=== PATIENT | female | born 2000 | race Caucasian/White ===

== ENCOUNTER 2020-12-09 14:15 | Outpatient (REF) | payer OTHER, SELFPAY ==
[2020-12-11 00:48] LABS: C. trachomatis RNA TMA NOT DETECTED (NOT DETECTED); N. gonorrhoeae RNA TMA NOT DETECTED (NOT DETECTED)
== END 2020-12-09 14:16 | disposition home or self-care (01) ==
LOC: HO.LNP 14:15
PROVIDERS: Visit Provider Pediatrics
DX: N92.6 Irregular menstruation, unspecified (principal)
CPT/HCPCS: 87491; 87591

== ENCOUNTER 2021-08-16 15:53 | Outpatient (REF) | payer OTHER, SELFPAY ==
[2021-08-17 00:05] LABS: Monotest Negative (Negative)
== END 2021-08-16 15:54 | disposition home or self-care (01) ==
LOC: HO.LAB 15:53
PROVIDERS: Visit Provider Internal Medicine
DX: J06.9 Acute upper respiratory infection, unspecified (principal)
CPT/HCPCS: 36415; 86308

== ENCOUNTER 2021-11-17 15:37 | Outpatient (REF) | payer OTHER, SELFPAY ==
[2021-11-17 15:58] LABS: MANUAL DIFF FLAG NO
[2021-11-17 16:39] LABS: Basophils Percent Auto 0.5 % (0-2); Eosinophils Absolute Auto 0.1 X10*3/uL (0.0-0.4); Eosinophils Percent Auto 0.7 % (0-4); Hematocrit 38.6 % (37.0-47.0); Hemoglobin 11.8 g/dl (12.0-16.0); Imm Gran Abs Auto 0.03 X10*3/uL (0.00-0.03); Imm Gran Pct Auto 0.4 % (0.0-0.4); Lymphocytes Absolute Auto 2.6 X10*3/uL (1.2-4.9); Lymphocytes Percent Auto 31.3 % (20-40); Mean Corpuscular HGB Conc 30.6 g/dl (31.0-35.0); Mean Corpuscular Hemoglobin 23.5 pg (27.0-33.0); Mean Corpuscular Volume 76.7 fL (80.0-98.0); Mean Platelet Volume 10.7 fL (9.4-12.3); Monocytes Absolute Auto 0.7 X10*3/uL (0.1-1.2); Monocytes Percent Auto 8.3 % (2-11); Neutrophils Absolute Auto 4.9 x10*3/uL (2.0-8.3); Neutrophils Percent Auto 58.8 % (45-73); Platelet Count 329 X10*3/uL (160-400); Red Blood Count 5.03 X10*6/uL (4.20-5.50); Red Cell Distribution Width 16.9 % (11.0-16.0); White Blood Count 8.4 X10*3/uL (4.8-10.8)
[2021-11-17 17:00] LABS: Alanine Aminotransferase 13 U/L (0-31); Albumin Level 4.3 g/dL (3.5-5.0); Alkaline Phosphatase 38 U/L (39-117); Anion Gap 11 (12-20); Aspartate Amino Transferase 13 U/L (5-31); Bilirubin Total 0.3 mg/dL (0.0-1.0); Blood Urea Nitrogen 10 mg/dL (9-16); C Reactive Protein 0.07 mg/dL (< or = 0.50); Calcium 9.8 mg/dL (8.4-10.2); Carbon Dioxide 23 mmol/L (22-29); Chloride 106 mmol/L (96-108); Estimated Glomerular Filt Rate > 60; Glucose Random 93 mg/dL (60-115); Iron 26 mcg/dL (30-160); Potassium 4.2 mmol/L (3.3-5.1); Sodium 136 mmol/L (135-145); Total Protein 7.5 g/dL (6.5-8.0)
[2021-11-17 17:20] LABS: Free T4 (Free Thyroxine) 0.93 ng/dL (0.71-1.85); Thyroid Stimulating Hormone 0.83 uIU/mL (0.32-4.0)
[2021-11-17 18:46] LABS: Percent Iron Saturation 4 % (15-50); Total Iron Binding Capacity 600 mcg/dL (228-428); Unsaturated Iron Binding 574 ug/dL
[2021-11-18 04:57] LABS: Lyme Abs Screen <0.90 index
[2021-11-18 05:20] LABS: Thyroid Peroxidase Antibodies <1 IU/mL (<9)
[2021-11-18 13:37] LABS: Streptolysin O Antibody <50 IU/mL (<200)
== END 2021-11-17 15:38 | disposition home or self-care (01) ==
LOC: HO.LAB 15:37
PROVIDERS: PCP Internal Medicine; Visit Provider Internal Medicine
DX: J35.01 Chronic tonsillitis (principal); E78.00 Pure hypercholesterolemia, unspecified
CPT/HCPCS: 36415; 80053; 83540; 84439; 84443; 85025; 86060; 86140; 86376; 86617; 86618; 87071

== ENCOUNTER 2022-01-12 14:59 | Outpatient (REF) | payer OTHER, SELFPAY ==
[2022-01-12 15:19] LABS: MANUAL DIFF FLAG NO
[2022-01-12 15:24] LABS: Basophils Percent Auto 0.5 % (0-2); Eosinophils Absolute Auto 0.1 X10*3/uL (0.0-0.4); Eosinophils Percent Auto 1.1 % (0-4); Hematocrit 41.1 % (37.0-47.0); Imm Gran Abs Auto 0.02 X10*3/uL (0.00-0.03); Imm Gran Pct Auto 0.3 % (0.0-0.4); Lymphocytes Absolute Auto 2.6 X10*3/uL (1.2-4.9); Lymphocytes Percent Auto 36.1 % (20-40); Mean Corpuscular HGB Conc 31.6 g/dl (31.0-35.0); Mean Corpuscular Hemoglobin 26.4 pg (27.0-33.0); Mean Corpuscular Volume 83.4 fL (80.0-98.0); Mean Platelet Volume 10.4 fL (9.4-12.3); Monocytes Absolute Auto 0.7 X10*3/uL (0.1-1.2); Monocytes Percent Auto 8.9 % (2-11); Neutrophils Absolute Auto 3.9 x10*3/uL (2.0-8.3); Neutrophils Percent Auto 53.1 % (45-73); Platelet Count 279 X10*3/uL (160-400); Red Blood Count 4.93 X10*6/uL (4.20-5.50); Red Cell Distribution Width 19.4 % (11.0-16.0); White Blood Count 7.3 X10*3/uL (4.8-10.8)
[2022-01-12 15:44] LABS: Appearance Urine CLEAR; Color Urine YELLOW; Glucose Urine UA NEG (NEG); Leukocyte Esterase Urine NEG (NEG); Nitrite Urine NEG (NEG); PH 5.5 (5.0-8.0); Urine Blood NEG (NEG); Urine Ketones NEG (NEG); Urine Protein NEG (NEG-TRACE)
[2022-01-12 16:03] LABS: Alanine Aminotransferase 13 U/L (0-31); Albumin Level 4.3 g/dL (3.5-5.0); Alkaline Phosphatase 40 U/L (39-117); Anion Gap 14 (12-20); Aspartate Amino Transferase 15 U/L (5-31); Bilirubin Total 0.3 mg/dL (0.0-1.0); Blood Urea Nitrogen 8 mg/dL (9-16); C Reactive Protein 0.05 mg/dL (< or = 0.50); Calcium 9.5 mg/dL (8.4-10.2); Carbon Dioxide 23 mmol/L (22-29); Chloride 105 mmol/L (96-108); Estimated Glomerular Filt Rate > 60; Glucose Random 91 mg/dL (60-115); Lipase 31 U/L (8-78); Potassium 4.7 mmol/L (3.3-5.1); Sodium 137 mmol/L (135-145); Total Protein 7.5 g/dL (6.5-8.0)
[2022-01-12 17:17] LABS: CT PCR NOT DETECTED (Not Detect.); NG PCR NOT DETECTED (Not Detect.)
== END 2022-01-12 15:00 | disposition home or self-care (01) ==
LOC: HO.LAB 14:59
PROVIDERS: PCP Internal Medicine; Visit Provider Internal Medicine
DX: R30.0 Dysuria (principal); R10.9 Unspecified abdominal pain; Z11.3 Encounter for screening for infections with a predominantly sexual mode of transmission; Z11.8 Encounter for screening for other infectious and parasitic diseases
CPT/HCPCS: 80053; 81003; 83690; 85025; 86140; 87086; 87491; 87591

== ENCOUNTER 2022-01-13 15:58 | Outpatient (REF) | payer OTHER, SELFPAY ==
--- NOTE | ~2022-01-13 | US_ITS ---
EXAMINATION: US PELVIS CLINICAL INFORMATION: Dysuria and pelvic pain. Rule out cyst. COMPARISON: None TECHNIQUE: Transabdominal pelvic ultrasound was performed. Patient declined transvaginal exam. FINDINGS: The uterus is anteverted and measures 6.5 x 2 x 4.3 cm in dimension. No focal uterine lesion is seen. Endometrial thickness is normal measuring 0.4 cm. The ovaries are normal-appearing. The right ovary measures 1.8 x 0.9 x 1.9 cm. The left ovary measures 2.7 x 2 x 2.3 cm. There is no fluid in the pelvis. US/US pelvic ovarian doppler IMPRESSION: Normal pelvic ultrasound.
--- NOTE | ~2022-01-13 | US_ITS ---
EXAMINATION: US PELVIS CLINICAL INFORMATION: Dysuria and pelvic pain. Rule out cyst. COMPARISON: None TECHNIQUE: Transabdominal pelvic ultrasound was performed. Patient declined transvaginal exam. FINDINGS: The uterus is anteverted and measures 6.5 x 2 x 4.3 cm in dimension. No focal uterine lesion is seen. Endometrial thickness is normal measuring 0.4 cm. The ovaries are normal-appearing. The right ovary measures 1.8 x 0.9 x 1.9 cm. The left ovary measures 2.7 x 2 x 2.3 cm. There is no fluid in the pelvis. US/US pelvic complete IMPRESSION: Normal pelvic ultrasound.
== END 2022-01-13 15:59 | disposition home or self-care (01) ==
LOC: HO.US 15:58
PROVIDERS: Visit Provider Internal Medicine
DX: R30.0 Dysuria (principal); R10.2 Pelvic and perineal pain
CPT/HCPCS: 76856; 93975

== ENCOUNTER → 2022-02-08 13:32 | Outpatient (BNVA) | payer OTHER, SELFPAY | PROVIDERS: Visit Provider Advanced Practice Midwife | DX: Z30.09 Encounter for other general counseling and advice on contraception (principal); Z79.899 Other long term (current) drug therapy | CPT/HCPCS: 99212 ==

== ENCOUNTER → 2022-02-11 11:31 | Outpatient (BNVA) | payer OTHER, SELFPAY | PROVIDERS: PCP Internal Medicine | DX: R39.82 Chronic bladder pain (principal) | CPT/HCPCS: 51798 ==

== ENCOUNTER 2022-02-25 10:01 | Outpatient (REF) | payer OTHER, SELFPAY ==
--- NOTE | ~2022-02-25 | US_ITS ---
EXAMINATION: US RETROPERITONEAL COMPLETE (RENAL) CLINICAL INFORMATION: Chronic bladder pain. COMPARISON: None TECHNIQUE: Real-time imaging of the kidneys and bladder. FINDINGS: RIGHT KIDNEY: 10.3 x 3.0 x 6.1 cm (SAG x AP x TRV). The kidney is normal in size, contour, and echogenicity. Renal cortical thickness is normal. No calculi or focal parenchymal lesions. No hydronephrosis but there is fullness of collecting system. LEFT KIDNEY: 11.2 x 5.0 x 4.7 cm (SAG x AP x TRV). The kidney is normal in size, contour, and echogenicity. Renal cortical thickness is normal. No calculi or focal parenchymal lesions. No hydronephrosis, but there is fullness of the collecting system BLADDER: Well distended and normal. Bilateral ureteral jets are demonstrated. Prevoid bladder volume is 341 mL. Postvoid bladder volume is 65.7 mL. There is small amount of debris in the bladder US/US retroperitoneal comp IMPRESSION: Enlarged residual linear amount of urine and small amount of debris in the bladder.
== END 2022-02-25 10:02 | disposition home or self-care (01) ==
LOC: HO.HMGCX 10:01
PROVIDERS: PCP Internal Medicine
DX: R39.82 Chronic bladder pain (principal)
CPT/HCPCS: 76770

== ENCOUNTER → 2022-03-24 08:33 | Outpatient (BNVA) | payer OTHER, SELFPAY | PROVIDERS: PCP Internal Medicine | DX: R30.0 Dysuria (principal) ==

== ENCOUNTER 2022-04-06 08:55 | Outpatient (REF) | payer OTHER, SELFPAY ==
[2022-04-06 09:33] LABS: COVID-19 Test Negative (Negative)
== END 2022-04-06 08:56 | disposition home or self-care (01) ==
LOC: HO.LAB 08:55
PROVIDERS: Visit Provider Internal Medicine
DX: Z20.822 Contact with and (suspected) exposure to COVID-19 (principal)
CPT/HCPCS: 87635; C9803

== ENCOUNTER 2022-05-28 10:34 | Outpatient (REF) | payer OTHER, SELFPAY ==
[2022-05-28 10:42] LABS: MANUAL DIFF FLAG NO
[2022-05-28 10:53] LABS: Basophils Percent Auto 0.5 % (0-2); Eosinophils Absolute Auto 0.1 X10*3/uL (0.0-0.4); Eosinophils Percent Auto 1.5 % (0-4); Hematocrit 41.5 % (37.0-47.0); Hemoglobin 13.8 g/dl (12.0-16.0); Imm Gran Abs Auto 0.02 X10*3/uL (0.00-0.03); Imm Gran Pct Auto 0.3 % (0.0-0.4); Lymphocytes Absolute Auto 1.8 X10*3/uL (1.2-4.9); Lymphocytes Percent Auto 23.8 % (20-40); Mean Corpuscular HGB Conc 33.3 g/dl (31.0-35.0); Mean Corpuscular Hemoglobin 30.1 pg (27.0-33.0); Mean Corpuscular Volume 90.4 fL (80.0-98.0); Mean Platelet Volume 10.5 fL (9.4-12.3); Monocytes Absolute Auto 0.7 X10*3/uL (0.1-1.2); Monocytes Percent Auto 8.9 % (2-11); Neutrophils Absolute Auto 4.9 x10*3/uL (2.0-8.3); Platelet Count 252 X10*3/uL (160-400); Red Blood Count 4.59 X10*6/uL (4.20-5.50); White Blood Count 7.6 X10*3/uL (4.8-10.8)
[2022-05-28 11:16] LABS: Alanine Aminotransferase 15 U/L (0-31); Albumin Level 4.6 g/dL (3.5-5.0); Alkaline Phosphatase 52 U/L (39-117); Anion Gap 12 (12-20); Aspartate Amino Transferase 16 U/L (5-31); Bilirubin Total 0.4 mg/dL (0.0-1.0); Blood Urea Nitrogen 10 mg/dL (9-16); Calcium 9.5 mg/dL (8.4-10.2); Carbon Dioxide 24 mmol/L (22-29); Chloride 105 mmol/L (96-108); Cholesterol 205 mg/dL; Estimated Glomerular Filt Rate > 60; Glucose Fasting 61 mg/dL (60-99); HDL Cholesterol 55 mg/dL; Iron 61 mcg/dL (30-160); LDL Cholesterol Calculated 133 mg/dl; Percent Iron Saturation 13 % (15-50); Potassium 4.4 mmol/L (3.3-5.1); Sodium 137 mmol/L (135-145); Total Iron Binding Capacity 461 mcg/dL (228-428); Total Protein 7.6 g/dL (6.5-8.0); Triglycerides 87 mg/dL; Unsaturated Iron Binding 400 ug/dL
[2022-06-01 22:22] LABS: Apolipoprotein B 105 mg/dL (<90)
== END 2022-05-28 10:35 | disposition home or self-care (01) ==
LOC: HO.LAB 10:34
PROVIDERS: PCP Internal Medicine; Visit Provider Internal Medicine
DX: E78.01 Familial hypercholesterolemia (principal); D64.9 Anemia, unspecified; E78.5 Hyperlipidemia, unspecified
CPT/HCPCS: 36415; 80053; 80061; 82172; 83540; 85025

== ENCOUNTER 2022-08-15 11:21 | Outpatient (REF) | payer OTHER, SELFPAY ==
[2022-08-15 11:34] LABS: MANUAL DIFF FLAG NO
[2022-08-15 12:43] LABS: Basophils Percent Auto 0.7 % (0-2); Eosinophils Absolute Auto 0.1 X10*3/uL (0.0-0.4); Hematocrit 40.1 % (37.0-47.0); Hemoglobin 13.1 g/dl (12.0-16.0); Imm Gran Abs Auto 0.02 X10*3/uL (0.00-0.03); Imm Gran Pct Auto 0.3 % (0.0-0.4); Lymphocytes Absolute Auto 1.6 X10*3/uL (1.2-4.9); Lymphocytes Percent Auto 27.9 % (20-40); Mean Corpuscular HGB Conc 32.7 g/dl (31.0-35.0); Mean Corpuscular Hemoglobin 28.9 pg (27.0-33.0); Mean Corpuscular Volume 88.5 fL (80.0-98.0); Mean Platelet Volume 10.6 fL (9.4-12.3); Monocytes Absolute Auto 0.6 X10*3/uL (0.1-1.2); Monocytes Percent Auto 9.5 % (2-11); Neutrophils Absolute Auto 3.5 x10*3/uL (2.0-8.3); Neutrophils Percent Auto 60.6 % (45-73); Platelet Count 246 X10*3/uL (160-400); Red Blood Count 4.53 X10*6/uL (4.20-5.50); Red Cell Distribution Width 13.4 % (11.0-16.0); White Blood Count 5.8 X10*3/uL (4.8-10.8)
[2022-08-15 13:28] LABS: Free T4 (Free Thyroxine) 0.98 ng/dL (0.71-1.85); Thyroid Stimulating Hormone 0.56 uIU/mL (0.32-4.0)
[2022-08-16 18:02] LABS: Follicle Stimulating Hormone 5.9 mIU/mL; Prolactin 8.2 ng/mL
[2022-08-20 22:48] LABS: Estradiol Free 1.83 pg/mL; Estradiol, Ultrasensitive 100 pg/mL
[2022-08-21 17:26] LABS: Testosterone, Free 1.8 pg/mL (0.1-6.4); Testosterone, Total 19 ng/dL (2-45)
== END 2022-08-15 11:22 | disposition home or self-care (01) ==
LOC: HO.LAB 11:21
PROVIDERS: PCP Internal Medicine; Visit Provider Nurse Practitioner Women's Health
DX: R23.2 Flushing (principal)
CPT/HCPCS: 36415; 82670; 82681; 83001; 84146; 84402; 84403; 84439; 84443; 85025

== ENCOUNTER 2022-09-01 16:47 | Outpatient (REF) | payer OTHER, SELFPAY ==
--- NOTE | ~2022-09-01 | US_ITS ---
EXAMINATION: US RETROPERITONEAL LIMITED (RENAL ONLY) CLINICAL INFORMATION: Dysuria. COMPARISON: Ultrasound retroperitoneal complete (renal) 02/25/2022. TECHNIQUE: Real-time imaging of the kidneys. FINDINGS: RIGHT KIDNEY: 10.1 x 3.4 x 5.2 cm (SAG x AP x TRV). The kidney is normal in size, contour, and echogenicity. Renal cortical thickness is normal. No calculi or focal parenchymal lesions. No hydronephrosis. There is mild pelvic fullness. LEFT KIDNEY: 10.4 x 5.5 x 4.0 cm (SAG x AP x TRV). The kidney is normal in size, contour, and echogenicity. Renal cortical thickness is normal. No calculi or focal parenchymal lesions. No hydronephrosis. BLADDER: Bilateral ureteral jets are demonstrated. US/US renal BI IMPRESSION: 1. Mild right renal pelvic fullness. 2. No echogenic stones or hydronephrosis seen. 3. Normal bilateral ureteral jets seen.
== END 2022-09-01 16:48 | disposition home or self-care (01) ==
LOC: HO.US 16:47
DX: R30.0 Dysuria (principal)
CPT/HCPCS: 76775

== ENCOUNTER 2022-09-13 11:33 | Outpatient (REF) | payer OTHER, SELFPAY ==
[2022-09-13 13:24] LABS: Alanine Aminotransferase 17 U/L (0-31); Albumin Level 4.9 g/dL (3.5-5.0); Alkaline Phosphatase 49 U/L (39-117); Aspartate Amino Transferase 20 U/L (5-31); Bilirubin Direct 0.2 mg/dL (0.0-0.5); Bilirubin Total 0.4 mg/dL (0.0-1.0); C Reactive Protein 0.03 mg/dL (< or = 0.50); Iron 43 mcg/dL (30-160); Percent Iron Saturation 9 % (15-50); Total Iron Binding Capacity 486 mcg/dL (228-428); Total Protein 7.8 g/dL (6.5-8.0); Unsaturated Iron Binding 443 ug/dL
[2022-09-13 13:40] LABS: Ferritin 7 ng/mL (10-122); Vitamin D 25-OH Total 30.6 ng/mL (>30)
[2022-09-13 13:54] LABS: Folate 8.2 ng/mL (> or = 4.0); Vitamin B12 258 pg/mL (200-900)
[2022-09-14 04:19] LABS: ~HepC Num1 0.16 S/CO (0.00-0.79); ~Hepatitis C Antibody Nonreactive (Nonreactive)
[2022-09-14 14:22] LABS: Immunoglobulin A 168 mg/dL (47-310)
[2022-09-16 14:52] LABS: Transglutaminase IgA <1.0 U/mL
== END 2022-09-13 11:34 | disposition home or self-care (01) ==
LOC: HO.LAB 11:33
PROVIDERS: PCP Internal Medicine; Visit Provider Internal Medicine
DX: K52.9 Noninfective gastroenteritis and colitis, unspecified (principal); R19.8 Other specified symptoms and signs involving the digestive system and abdomen
CPT/HCPCS: 36415; 80076; 82306; 82607; 82728; 82746; 82784; 83540; 84443; 86140; 86364; 86803

== ENCOUNTER 2022-09-14 11:24 | Outpatient (REF) | payer OTHER, SELFPAY | END 2022-09-14 11:25 | disposition home or self-care (01) | LOC: HO.LAB 11:24 | PROVIDERS: Visit Provider Internal Medicine | DX: Z13.89 Encounter for screening for other disorder (principal) ==

== ENCOUNTER 2022-09-15 17:02 | Outpatient (REF) | payer OTHER, SELFPAY ==
[2022-09-23 22:12] LABS: Calprotectin, Fecal <5 mcg/g
== END 2022-09-15 17:03 | disposition home or self-care (01) ==
LOC: HO.LNP 17:02
PROVIDERS: Visit Provider Internal Medicine
DX: K52.9 Noninfective gastroenteritis and colitis, unspecified (principal)
CPT/HCPCS: 83993

== ENCOUNTER → 2022-11-08 14:27 | Outpatient (BNVA) | payer OTHER, SELFPAY | PROVIDERS: PCP Internal Medicine; Visit Provider Internal Medicine | DX: R10.9 Unspecified abdominal pain (principal) ==

== ENCOUNTER 2022-11-09 10:17 | Outpatient (REF) | payer OTHER, SELFPAY ==
[2022-11-09 10:59] LABS: Appearance Urine Clear; Color Urine Yellow; Glucose Urine UA Negative (Negative); Leukocyte Esterase Urine Negative (Negative); Nitrite Urine Negative (Negative); Specific Gravity - Urine 1.025 (1.005-1.025); Urine Blood Negative (Negative); Urine Ketones Negative (Negative); Urine Protein Negative (Neg-Trace)
== END 2022-11-09 10:18 | disposition home or self-care (01) ==
LOC: HO.LAB 10:17
PROVIDERS: PCP Internal Medicine; Visit Provider Internal Medicine
DX: R30.0 Dysuria (principal)
CPT/HCPCS: 81003; 87086

== ENCOUNTER 2022-12-14 13:21 | Outpatient (REF) | payer OTHER, SELFPAY ==
[2022-12-14 14:58] LABS: Iron 196 mcg/dL (30-160); Percent Iron Saturation 53 % (15-50); Total Iron Binding Capacity 372 mcg/dL (228-428); Unsaturated Iron Binding 176 ug/dL
[2022-12-14 15:08] LABS: Ferritin 18 ng/mL (10-122)
== END 2022-12-14 13:22 | disposition home or self-care (01) ==
LOC: HO.LAB 13:21
PROVIDERS: PCP Internal Medicine; Visit Provider Internal Medicine
DX: K64.9 Unspecified hemorrhoids (principal)
CPT/HCPCS: 36415; 82728; 83540

== ENCOUNTER → 2022-12-27 08:58 | Outpatient (BNVA) | payer OTHER, SELFPAY | PROVIDERS: PCP Internal Medicine; Visit Provider Internal Medicine | DX: Z13.89 Encounter for screening for other disorder (principal) ==

== ENCOUNTER 2023-01-26 11:32 | Day surgery (SDC) | payer OTHER, SELFPAY ==
[2022-12-05 09:19] VITALS: BMI 18.6
[2023-01-23 14:30] VITALS: BMI 18.6
--- NOTE | 2023-01-25 13:30 | HO.ANESPROP2 ---
Documented by User: Virginia Moscoso NP 01/25/23 13:30 HPI - Anesthesia Eval Consult details Narrative: 22yo F for Colonoscopy PMFSH Active Problems Active Problems: All Active Problems (Updated 11/08/22 @ 15:15 by Ivelisse Barnes MD) Bright red rectal bleeding (Acute) Encounter for diagnostic colonoscopy due to change in bowel habits (Acute) Bloating (Acute) Hemorrhoids (Acute) Alternating constipation and diarrhea (Acute) Chronic diarrhea (Acute) Dysuria (Acute) Iron deficiency anemia due to chronic blood loss (Acute) Familial hypercholesterolemia (Acute) Hot flashes (Acute) ZULEIKA (generalized anxiety disorder) (Acute) Acne cosmetica (Acute) Insomnia (Acute) Chronic urinary bladder pain (Acute) control counseling (Acute) Upper respiratory tract infection (Acute) Past Medical History Medical History Acne cosmetica Chronic urinary bladder pain Dysuria Familial hypercholesterolemia ZULEIKA (generalized anxiety disorder) Hot flashes Insomnia Iron deficiency anemia due to chronic blood loss Surgical History Surgical History History of esophagogastroduodenoscopy (EGD) Social History Social History Housing: House Alcohol intake: current Alcohol intake frequency: holidays/special occasions only Alcohol type: beer and wine Patient Tobacco Use Status: Never used Tobacco e-Cigarette/Vaping Use: Never Used Are you DNR?: No Advance Directives: No Advance Directives Information Provided: Yes Recently lost weight without trying: No Patient : No service: No Current occupational status: employed and student Gender identity: Female Cognitive needs: No Hearing needs: No Vision needs: No Meds Allergies Allergy/AdvReac Type Severity Reaction Status Date / Time lactose Allergy Intermediate Gastrointestinal Verified 12/27/22 09:02 Upset Home Medications Medication Instructions Recorded Confirmed Last Taken Type tretinoin 0.025 % topical cream 1 appl topical BEDTIME 03/24/22 01/23/23 Unknown History spironolactone 25 mg tablet 50 mg PO BID 09/07/22 12/05/22 Unknown History sertraline 100 mg tablet 100 mg PO DAILY 10/12/22 12/05/22 Unknown History trazodone 100 mg tablet 100 mg PO BEDTIME 12/27/22 01/23/23 Unknown History Exam Exam Date and Time: January 25, 2023 1330 Height,Weight and Vital Signs: Height 5 ft 6 in Weight 52.163 kg Assessment and Plan Assessment Anesthesia Assessment: Chart Reviewed Documented by User: Maikel Hector MD 01/26/23 11:56 PMFSH Past Medical History Medical History Acne cosmetica Chronic urinary bladder pain Dysuria Familial hypercholesterolemia ZULEIKA (generalized anxiety disorder) Hot flashes Insomnia Iron deficiency anemia due to chronic blood loss Family History Family history of problems with anesthesia: No Surgical History Surgical History History of esophagogastroduodenoscopy (EGD) History of Problems with Anesthesia: No Social History Social History Housing: House Alcohol intake: current Alcohol intake frequency: holidays/special occasions only Alcohol type: beer and wine Patient Tobacco Use Status: Never used Tobacco e-Cigarette/Vaping Use: Never Used Are you DNR?: No Advance Directives: No Advance Directives Information Provided: Yes Recently lost weight without trying: No Patient : No service: No Current occupational status: employed and student Gender identity: Female Cognitive needs: No Hearing needs: No Vision needs: No Meds Allergies Allergy/AdvReac Type Severity Reaction Status Date / Time lactose Allergy Intermediate Gastrointestinal Verified 12/27/22 09:02 Upset Home Medications Medication Instructions Recorded Confirmed Last Taken Type tretinoin 0.025 % topical cream 1 appl topical BEDTIME 03/24/22 01/23/23 Unknown History spironolactone 25 mg tablet 50 mg PO BID 09/07/22 12/05/22 Unknown History sertraline 100 mg tablet 100 mg PO DAILY 10/12/22 12/05/22 Unknown History trazodone 100 mg tablet 100 mg PO BEDTIME 12/27/22 01/23/23 Unknown History Exam Airway Mallampati Class: II TM Dist: >3cm Neck ROM: Full Assessment and Plan Assessment Anesthesia Assessment: Anesthesia Plan Discussed Final Anesthetic Review Family History of Problems with Anesthesia: No History of Problems with Anesthesia: No NPO: Yes ASA Class: II Final Preanesthetic Review: No Changes in Pt Med Stat, Meds/Allgs Chart Reviewed, Consent Obtained/Reviewed and Anes Risks/Benef Reviewed Patient Risk: Low Procedure Risk: Low Anesthetic Plan Anesthetic Plan: MAC: Disposition: Standard PACU
--- NOTE | 2023-01-26 09:52 | MHC.SHP ---
Pre-Procedural Eval Section A Date of Service: 01/26/23 Section B Chief Complaint: abdominal pain, changes in bowels, rectal bleeding Details of Present Illness: PMH: Acne cosmetica Chronic urinary bladder pain Dysuria Familial hypercholesterolemia ZULEIKA (generalized anxiety disorder) Hot flashes Insomnia Iron deficiency anemia due to chronic blood loss Surgical History: History of esophagogastroduodenoscopy (EGD) Relevant Social History: None Present Medications: see Short Stay Collaborative assessment History of Previous Operations: No relevant previous surgery Allergies: Allergies Allergy/AdvReac Type Severity Reaction Status Date / Time lactose Allergy Intermediate Gastrointestinal Verified 12/27/22 09:02 Upset Review of Systems Review of Systems Comment: Ten point ROS negative except as above Exam Exam Comment: Gen appear: No acute distress HEENT: no icterus Chest: No overt resp distress Abd: soft, nontender, nondistended Psych: Stable affect, answering questions appropriately Neuro: A/Ox3 noted to move all extremities spontaneously Ext: no peripheral edema Plan Diagnosis/Plan: Unchanged I have reviewed the history and physical and performed a pertinent physical examination on my patient. No changes have occurred unless specified. Time Spent With Patient Time: Total time managing care of this patient today ____ minutes.
[2023-01-26 11:46] VITALS: BP 119/79; PULSE 100; RESP 18; TEMP 36.1; O2SAT 97
[2023-01-26 12:00] LABS: UPreg QC Valid YES; Urine Pregnancy NEGATIVE (NEGATIVE)
[2023-01-26] MEDS: Lactated Ringers 1,000 ML 100 ML IVCONT (12:03)
--- NOTE | 2023-01-26 12:31 | P.OP_ITS ---
Operative Note Operative Note Date of Service: 01/26/23 Narrative: Procedure: Colonoscopy Indication: Change in bowel habits, rectal bleeding Endoscopist: Ivelisse Barnes MD Anesthesia Provider: Dr Kacey Lai Anesthesia type: MAC Instrument: Olympus [id number]-H190L Consent: Indication, risks vs benefits, and alternatives were discussed with the patient who gave written informed consent to proceed. EKG, pulse, pulse oximetry and blood pressure were monitored throughout the procedure. Please see anesthesia flowsheet. Procedure: The patient was brought to the procedure room and placed in the left lateral decubitus position. IV medications were administered by the anesthesia provider in attendance. A digital rectal exam was performed which was normal. The distal cap was affixed to the tip of the scope and the colonoscope was then inserted through the anus and advanced through the colon to the cecum at 70 cm,and terminal ileum. Mucosa was carefully examined under high definition white light as the instrument was slowly withdrawn in a retrograde panoramic fashion. Retroflexion was performed in rectum. The procedure was not difficult. There were no immediate obvious complications. The quality of the prep was BBPS: 3+3+3 = excellent Withdrawal time 7 minutes. Limitations: No limitations. Findings: Mucosa: Normal to cecum and terminal ileum. Random cold forceps biopsies were taken from right and left side of the colon to r/o microscopic colitis Protruding lesions: * Large internal hemorrhoids without stigmata of recent bleeding. Impression: 1. Normal colon and terminal ileum mucosa 2. Internal hemorrhoids Recommendations: - Rectal bleeding likely secondary to hemorrhoids as noted on evaluation today. - Follow path results. - Resume asymptomatic colorectal cancer screening at 45 years.
[2023-01-26 12:36] VITALS: BP 92/47; PULSE 82; RESP 16; TEMP 36.6; O2SAT 100
[2023-01-26 12:51] VITALS: BP 100/61; PULSE 74; RESP 18; TEMP 36.4; O2SAT 100
--- NOTE | 2023-01-26 13:27 | HO.POSTANES ---
Post Anesthesia Evaluation Post Anesthesia Evaluation Vital Signs: Vital Signs Temp Pulse Resp BP Pulse Ox O2 Del Method 01/26/23 12:51 97.6 F 74 18 100/61 100 Room Air 01/26/23 12:36 97.8 F 82 16 92/47 L 100 Room Air 01/26/23 11:46 97 F 100 18 119/79 97 Room Air Anesthesia: Monitored Mental Status: Awake Pain Control: Satisfactory Nausea/Vomiting: None (Z) Hydration: Adequate Anesthesia-Related Issues: No Anes. Related Issues
== END 2023-01-26 13:37 | disposition home or self-care (01) ==
PROVIDERS: Nurse Practitioner; PCP Internal Medicine; Visit Provider Internal Medicine
PROC: 0DJD8ZZ Inspection of Lower Intestinal Tract, Via Natural or Artificial Opening Endoscopic (ICD-10-PCS; CPT 45378; principal; 2023-01-26 13:00)
DX: K62.5 Hemorrhage of anus and rectum (principal); R19.4 Change in bowel habit; R10.9 Unspecified abdominal pain; K64.8 Other hemorrhoids; E78.01 Familial hypercholesterolemia; R30.0 Dysuria; D50.0 Iron deficiency anemia secondary to blood loss (chronic); R39.82 Chronic bladder pain; L70.8 Other acne; F41.1 Generalized anxiety disorder; Z79.899 Other long term (current) drug therapy; Z91.011 Allergy to milk products
CPT/HCPCS: 45380; 81025; 88305

== ENCOUNTER 2023-01-26 21:05 | Emergency (ER) | payer OTHER, SELFPAY ==
--- NOTE | ~2023-01-26 | CT_ITS ---
EXAMINATION CT ABDOMEN AND PELVIS WITHOUT AND WITH CONTRAST CLINICAL INFORMATION: Rectal bleeding. COMPARISON: None. TECHNIQUE: Multidetector volumetric CT imaging of the abdomen and pelvis was obtained before after the administration of 80 mL Omnipaque 350 intravenous contrast without immediate adverse reactions. Postcontrast images were acquired during the late arterial and 3 min delayed phases. Coronal and sagittal reformats were reviewed. This CT examination was performed using dose optimization techniques as appropriate, variously including the following: *Automated exposure control *Adjustment of mA and/or kV according to patient size (this includes techniques or standardized protocols for targeted exams where dose is matched to indication/reason for exam; i.e. extremities or head) *Use of iterative reconstruction technique DLP: 781 mGy-cm FINDINGS: IMAGED THORAX: Clear lungs. HEPATOBILIARY: Liver normal in size, contour and morphology. There are couple subcentimeter hypodensities in the right lobe liver compatible with benign cysts. No suspicious lesions. No intra or extrahepatic biliary dilation. Normal gallbladder. PANCREAS: Normal. SPLEEN: Normal. ADRENAL GLANDS: Normal. KIDNEYS, URETERS AND BLADDER: Kidneys are normal in size, axis and morphology is symmetric uptake of contrast bilaterally. No urinary calculi, hydronephrosis or hydroureter. No perinephric abnormalities. Normal bladder. GASTROINTESTINAL TRACT: No source of active gastrointestinal bleeding is identified. No intestinal obstruction or inflammation. Normal appendix. LYMPH NODES: No lymphadenopathy. PERITONEUM/BODY WALL: Unremarkable VASCULAR STRUCTURES: Normal. OSSEOUS STRUCTURES: No acute or suspicious osseous abnormalities. CT/CT gi bleed abd pel wo/w IVcon IMPRESSION: * No source of active gastrointestinal bleeding is identified. * No acute findings within the abdomen or pelvis.
[2023-01-26 21:25] VITALS: BP 119/69; PULSE 90; RESP 16; TEMP 36.6; O2SAT 97; BMI 18.6
[2023-01-26 21:38] LABS: MANUAL DIFF FLAG NO
[2023-01-26 21:39] LABS: Basophils Absolute Auto 0.1 X10*3/uL (0.0-0.2); Basophils Percent Auto 0.6 % (0-2); Eosinophils Absolute Auto 0.1 X10*3/uL (0.0-0.4); Eosinophils Percent Auto 1.2 % (0-4); Hematocrit 39.7 % (37.0-47.0); Hemoglobin 13.2 g/dl (12.0-16.0); Imm Gran Abs Auto 0.03 X10*3/uL (0.00-0.03); Imm Gran Pct Auto 0.3 % (0.0-0.4); Lymphocytes Absolute Auto 2.8 X10*3/uL (1.2-4.9); Lymphocytes Percent Auto 30.7 % (20-40); Mean Corpuscular HGB Conc 33.2 g/dl (31.0-35.0); Mean Corpuscular Hemoglobin 30.2 pg (27.0-33.0); Mean Corpuscular Volume 90.8 fL (80.0-98.0); Mean Platelet Volume 9.9 fL (9.4-12.3); Monocytes Absolute Auto 0.8 X10*3/uL (0.1-1.2); Monocytes Percent Auto 8.9 % (2-11); Neutrophils Absolute Auto 5.3 x10*3/uL (2.0-8.3); Neutrophils Percent Auto 58.3 % (45-73); Platelet Count 245 X10*3/uL (160-400); Red Blood Count 4.37 X10*6/uL (4.20-5.50); Red Cell Distribution Width 13.3 % (11.0-16.0)
[2023-01-26 21:57] LABS: Alanine Aminotransferase 20 U/L (0-31); Albumin Level 4.3 g/dL (3.5-5.0); Alkaline Phosphatase 41 U/L (39-117); Anion Gap 14 (12-20); Aspartate Amino Transferase 19 U/L (5-31); Bilirubin Total 0.4 mg/dL (0.0-1.0); Blood Urea Nitrogen 9 mg/dL (9-16); Carbon Dioxide 27 mmol/L (22-29); Chloride 106 mmol/L (96-108); Creatinine Clr Calc Pharmacy 96.1; Estimated Glomerular Filt Rate > 60; Glucose Random 87 mg/dL (60-115); Potassium 4.2 mmol/L (3.3-5.1); Sodium 143 mmol/L (135-145); Total Protein 6.7 g/dL (6.5-8.0)
[2023-01-26 23:07] VITALS: BP 122/79; PULSE 73; RESP 16; TEMP 37; O2SAT 100
--- NOTE | 2023-01-26 23:12 | PC.NURSE ---
Pt presents to the ED for evaluation after having bright red blood after having a colonoscopy earlier today. Relates 2 episodes since 6pm. Denies any dizziness or lightheadedness. Relates some nausea. Ambulatory, alert, oriented x4 on arrival.
--- NOTE | 2023-01-26 23:55 | ED_ITS ---
HPI - GI Bleed General Chief complaint: GI Bleed Stated complaint: colonoscopy today states rectal bleeding Time Seen by Provider: 01/26/23 23:41 Source: patient Mode of arrival: ambulatory Limitations: no limitations History of Present Illness HPI Narrative: Patient comes to the emergency room complaining of painless rectal bleeding. Patient states that earlier today she had a colonoscopy done here at [facility]. Patient has had rectal bleeding in the past. Patient states that after her procedure she went home, was feeling well, then had abdominal cramping and then had rectal bleeding. Patient denies chest pain or shortness of breath, no lightheadedness. Related Data Home Medications Medication Instructions Recorded Confirmed tretinoin 0.025 % topical cream 1 appl topical BEDTIME 03/24/22 01/23/23 spironolactone 25 mg tablet 50 mg PO BID 09/07/22 12/05/22 sertraline 100 mg tablet 100 mg PO DAILY 10/12/22 12/05/22 trazodone 100 mg tablet 100 mg PO BEDTIME 12/27/22 01/23/23 Previous Rx's Medication Instructions Recorded sennosides 8.6 mg tablet (senna) 8.6 mg PO BEDTIME PRN constipation 09/07/22 30 days #30 tabs lactase 3,000 unit tablet (Lactaid) 3,000 unit PO QID PRN lactose 10/12/22 intolerance #60 tabs Allergies Allergy/AdvReac Type Severity Reaction Status Date / Time lactose Allergy Intermediate Gastrointestinal Verified 12/27/22 09:02 Upset Review of Systems Review of Systems: Constitutional : No Weight loss, No Fever, No Chills, No Night Sweats, No Fatigue, No Malaise ENT/Mouth : No Hearing loss, No Ear Pain, No Nasal Congestion, No Sinus Pain, No Hoarseness, No sore throat, No Rhinorrhea, No Swallowing Difficulty Eyes: No Eye Pain, No Swelling, No Redness, No Foreign Body, No Discharge, No Vision Changes Cardiovascular : No Chest Pain, No SOB, No Dyspnea on Exertion, No Orthopnea, No Edema, No Palpitations Respiratory : No Cough, No Sputum, No Wheezing, No Smoke Exposure, No Dyspnea Gastrointestinal : No Nausea, No Vomiting, No Diarrhea, No Constipation, No abdominal Pain, complaining of rectal bleeding Genitourinary : no irregular bleeding, No Dysuria, No Urinary Frequency, No Hematuria, No Urinary Incontinence, No Urgency, No Flank Pain, No Urinary Flow Changes, No Hesitancy Musculoskeletal : No joint pain, No Myalgias, No Joint Swelling Skin : No Skin Lesions, No rash Neuro : No Weakness, No Numbness, No Paresthesias, No Loss of Consciousness, No Dizziness, No Headache Psych : No Anxiety/Panic, No Depression, No SI/HI/AH/VH, No Social Issues, Heme/Lymph: No Bruising, No Bleeding,No Lymphadenopathy Endocrine : No Polyuria, No Polydipsia, No Temperature Intolerance [facility] Past Medical History Medical History Acne cosmetica Chronic urinary bladder pain Dysuria Familial hypercholesterolemia ZULEIKA (generalized anxiety disorder) Hot flashes Insomnia Iron deficiency anemia due to chronic blood loss Surgical History History of esophagogastroduodenoscopy (EGD) Social History Social History Housing: House Alcohol intake: current Alcohol intake frequency: holidays/special occasions only Alcohol type: beer and wine Patient Tobacco Use Status: Never used Tobacco e-Cigarette/Vaping Use: Never Used Advance Directives: No Advance Directives Information Provided: No Patient : No service: No Current occupational status: employed and student Gender identity: Female Cognitive needs: No Hearing needs: No Vision needs: No Physical Exam Vital Signs: Vital Signs: Last Vital Signs Temp 98.6 F 01/26/23 23:57 Pulse 64 01/26/23 23:57 Resp 14 01/26/23 23:57 BP 103/70 01/26/23 23:57 Pulse Ox 99 01/26/23 23:57 O2 Del Method 01/26/23 23:07 BMI result Body Mass Index 18.6 Const: Other: Appearance: Alert. Oriented X3. No acute distress. Eyes: Pupils equal, round and reactive to light. ENT: Pharynx normal. Neck: Normal inspection. Neck supple. No lymph nodes noted. No crepitus CVS: Normal heart rate and rhythm. Pulses normal. Normal S1 and S2 Respiratory: No respiratory distress. Breath sounds normal. No Wheezing. No rales Abdomen: Soft and nontender. No rigidity. No distention. Skin: Skin warm and dry. Normal skin color. Normal skin turgor. Extremities: No lower extremity edema. No Lacerations. No Rash Neuro: Oriented X 3. No motor deficit. No sensory deficit. Moving all extremities. No slurred speech. CN 2 through 12 grossly intact Psych: calm, cooperative, normal affect Course Course Course Narrative: -patient's initial labs show a normal hemoglobin and hematocrit. Patient's H&H will be drawn 2 hours after the 1st set of labs -CT for GI bleed pending Medications Administered Discontinued Medications Generic Name Dose Route Start Last Admin Trade Name Sherri PRN Reason Stop Dose Admin Iohexol 80 ml 01/27/23 01:48 01/27/23 01:49 Iohexol 350 Mg/Ml 100 Ml Infus..Btl IV 01/27/23 01:49 80 ml ONCE ONE Administration Medical Decision Making Medical Decision Making [facility] Narrative: -I reviewed Dr. Barnes's colonoscopy note from today: Finding showed rectal bleeding likely secondary to hemorrhoids as noted on the evaluation -patient's H&H is stable, no significant drop in hemoglobin. Vital stable -CT scan do not detect any active GI bleed -since patient has been here, patient has not had any significant bleeding, maybe just a few drops. -on digital rectal exam, the specimen came out clean, small amount of stool with no blood. Guaiac has been sent but there may be microscopic blood there was no gross red blood -patient feeling well, ready for discharge -discussed with the patient that she may have internal hemorrhoids. -patient offered preparation H prescription but states she already has at home. Differential Diagnosis Differential Diagnoses: The differential diagnosis associated with the presentation includes (Internal hemorrhoids, laceration from colonoscopy, colitis) Lab Data [facility] Lab Attestation statement: I reviewed the patient's lab results. 01/26/23 21:34 01/26/23 21:34 Labs: Lab Results 01/26/23 01/26/23 01/27/23 Range/Units 21:34 21:34 00:35 WBC 9.0 (4.8-10.8) X10*3/uL RBC 4.37 (4.20-5.50) X10*6/uL Hgb 13.2 12.5 (12.0-16.0) g/dl Hct 39.7 36.5 L (37.0-47.0) % MCV 90.8 (80.0-98.0) fL MCH 30.2 (27.0-33.0) pg MCHC 33.2 (31.0-35.0) g/dl RDW 13.3 (11.0-16.0) % Plt Count 245 (160-400) X10*3/uL MPV 9.9 (9.4-12.3) fL Immature Gran % (Auto) 0.3 (0.0-0.4) % Neut % (Auto) 58.3 (45-73) % Lymph % (Auto) 30.7 (20-40) % [place] % (Auto) 8.9 (2-11) % Eos % (Auto) 1.2 (0-4) % Baso % (Auto) 0.6 (0-2) % Lymph # (Auto) 2.8 (1.2-4.9) X10*3/uL [place] # (Auto) 0.8 (0.1-1.2) X10*3/uL Eos # (Auto) 0.1 (0.0-0.4) X10*3/uL Baso # (Auto) 0.1 (0.0-0.2) X10*3/uL Abs Immat Gran (auto) 0.03 (0.00-0.03) X10*3/uL Absolute Neuts (auto) 5.3 (2.0-8.3) x10*3/uL Absolute Nucleated RBC 0.000 (0.0-0.012) X10*3/uL Nucleated RBC % (auto) 0.0 (0.0-0.2) /100WBC Sodium 143 (135-145) mmol/L Potassium 4.2 (3.3-5.1) mmol/L Chloride 106 (96-108) mmol/L Carbon Dioxide 27 (22-29) mmol/L Anion Gap 14 (12-20) BUN 9 (9-16) mg/dL Creatinine 0.75 (0.5-1.4) mg/dL Estim Creat Clear Calc 96.1 Estimated GFR > 60 Random Glucose 87 (60-115) mg/dL Calcium 9.0 (8.4-10.2) mg/dL Total Bilirubin 0.4 (0.0-1.0) mg/dL AST 19 (5-31) U/L ALT 20 (0-31) U/L Alkaline Phosphatase 41 (39-117) U/L Total Protein 6.7 (6.5-8.0) g/dL Albumin 4.3 (3.5-5.0) g/dL Beta HCG, Quant < 2 mIU/mL Discharge Plan Discharge Clinical Impression: Bleeding internal hemorrhoids Patient Disposition: Home, Self-Care Instructions: Hemorrhoids (ED) Additional Instructions: Please follow-up with your primary care physician tomorrow. If you have any worsening or new symptoms, please return to the emergency room or call 911 Prescriptions: No Action spironolactone 25 mg tablet 50 mg PO BID tretinoin 0.025 % cream 1 appl topical BEDTIME sennosides [senna] 8.6 mg tablet 8.6 mg PO BEDTIME PRN (Reason: constipation) 30 Days Qty: 30 2RF sertraline 100 mg tablet 100 mg PO DAILY lactase [Lactaid] 3,000 unit tablet 3,000 unit PO QID PRN (Reason: lactose intolerance) Qty: 60 1RF Rx Instructions: administer with meals and/or snacks trazodone 100 mg tablet 100 mg PO BEDTIME
[2023-01-26 23:57] VITALS: BP 103/70; PULSE 64; RESP 14; TEMP 37; O2SAT 99
[2023-01-27 00:29] LABS: HCG Quantitative < 2 mIU/mL
[2023-01-27 00:42] LABS: Hematocrit 36.5 % (37.0-47.0); Hemoglobin 12.5 g/dl (12.0-16.0)
[2023-01-27] MEDS: iohexoL 350 MG/ML 100 ML INFUS..BTL 80 ML IV (01:49)
[2023-01-27 03:05] LABS: OBS Int Ctl Valid YES; OBS1 POSITIVE (NEGATIVE)
[2023-01-27 03:10] VITALS: BP 107/65; PULSE 68; RESP 16; TEMP 36.6; O2SAT 100
== END 2023-01-27 03:14 | disposition home or self-care (01) ==
PROVIDERS: Emergency Provider Emergency Medicine; PCP Internal Medicine
DX: K64.5 Perianal venous thrombosis (principal); R10.13 Epigastric pain; Z79.899 Other long term (current) drug therapy
CPT/HCPCS: 36415; 74178; 80053; 82272; 84702; 85014; 85018; 85025; 99284; Q9967

== ENCOUNTER → 2023-02-06 13:23 | Outpatient (BNVA) | payer OTHER, SELFPAY | PROVIDERS: PCP Internal Medicine; Visit Provider Internal Medicine | DX: Z13.89 Encounter for screening for other disorder (principal) ==

== ENCOUNTER 2023-04-16 01:17 | Emergency (ER) | payer OTHER, SELFPAY ==
[2023-04-16 01:22] VITALS: BP 118/76; PULSE 89; RESP 16; TEMP 36.5; O2SAT 100; BMI 19.4
[2023-04-16 02:00] VITALS: BP 119/77; PULSE 72; RESP 16; TEMP 36.4; O2SAT 98
[2023-04-16 02:26] LABS: Appearance Urine Cloudy; Color Urine Yellow; Glucose Urine UA Negative (Negative); Leukocyte Esterase Urine Large (3+) (Negative); Nitrite Urine Positive (Negative); UMIC TRIGGER UACC YES; Urine Blood Large (3+) (Negative); Urine Ketones 15 mg/dL (Negative); Urine Protein 30 (1+) mg/dL (Neg-Trace)
[2023-04-16 02:27] LABS: UPreg QC Valid YES; Urine Pregnancy NEGATIVE (NEGATIVE)
--- NOTE | 2023-04-16 02:29 | ED_ITS ---
HPI - Female Genitourinary General Chief complaint: Urogenital-Female Stated complaint: ?Urinary Tract Infection Time Seen by Provider: 04/16/23 02:04 Source: patient Mode of arrival: ambulatory History of Present Illness HPI Narrative: 23-year-old female who reports a new sexual partner and states that yesterday she began having some urinary discomfort and then today it became more significant with pain and burning as well as frequency and patient feels that she also saw some blood in the urine. Patient denies any concerns for STIs at this time. Related Data Home Medications Medication Instructions Recorded Confirmed spironolactone 25 mg tablet 50 mg PO BID 09/07/22 12/05/22 trazodone 100 mg tablet 100 mg PO BEDTIME 12/27/22 01/23/23 desvenlafaxine succinate 50 mg 50 mg PO DAILY 02/06/23 tablet,extended release 24 hr Previous Rx's Medication Instructions Recorded sennosides 8.6 mg tablet (senna) 8.6 mg PO BEDTIME PRN constipation 09/07/22 30 days #30 tabs lactase 3,000 unit tablet (Lactaid) 3,000 unit PO QID PRN lactose 10/12/22 intolerance #60 tabs wheat dextrin 3 gram/3.5 gram oral 2 packet (2 x 3 gram/3.5 gram) PO 02/06/23 powder packet (Benefiber Clear BID 30 days #120 ea Sugar Free(dextrin)) nitrofurantoin 100 mg PO Q12H 5 days #10 caps 04/16/23 monohydrate/macrocrystals 100 mg capsule (Macrobid) phenazopyridine 200 mg tablet 200 mg PO TID PRN pain 6 doses #6 04/16/23 (Pyridium) tabs Allergies Allergy/AdvReac Type Severity Reaction Status Date / Time lactose Allergy Intermediate Gastrointestinal Verified 12/27/22 09:02 Upset Review of Systems Review of Systems: Pertinent positives and negatives as stated in HPI [facility] Past Medical History Source: nursing notes reviewed Medical History Acne cosmetica Chronic urinary bladder pain Dysuria Familial hypercholesterolemia ZULEIKA (generalized anxiety disorder) Hot flashes Insomnia Iron deficiency anemia due to chronic blood loss Surgical History History of esophagogastroduodenoscopy (EGD) Hx of colonoscopy Social History Social History Housing: House Alcohol intake: current Alcohol intake frequency: holidays/special occasions only Alcohol type: beer and wine Patient Tobacco Use Status: Never used Tobacco e-Cigarette/Vaping Use: Never Used Advance Directives: No Advance Directives Information Provided: Yes service: No Current occupational status: employed and student Gender identity: Female Cognitive needs: No Hearing needs: No Vision needs: No Physical Exam Vital Signs: Vital Signs: Last Vital Signs Temp 97.7 F 04/16/23 01:22 Pulse 89 04/16/23 01:22 Resp 16 04/16/23 01:22 BP 118/76 04/16/23 01:22 Pulse Ox 100 04/16/23 01:22 O2 Del Method Room Air 04/16/23 01:22 BMI result Body Mass Index 19.4 VITAL SIGNS: Reviewed. GENERAL: Well developed, well nourished, in no acute distress. HEAD: Normocephalic/atraumatic EYES: PERRLA, EOMI EARS: Ext canals without abnormality LUNGS: Normal breath sounds. No adventitious sounds or accessory muscle use. SpO2<100> CARDIOVASCULAR: Regular rate and rhythm without noted murmurs ABDOMEN: Soft, non-tender, non-distended with bowel sounds. MUSCULOSKELETAL: No tenderness, deformities, or effusions noted on gross inspection. EXTREMITIES: No cyanosis, clubbing or edema. SKIN: Inspection of the skin reveals no rashes NEUROLOGIC: Alert and oriented x 4. Strength and sensation to light touch were grossly intact x 4. Medical Decision Making Medical Decision Making MDM Narrative: 23-year-old female with history and clinical presentation most consistent with urinary tract infection, after review of results my interpretation remains the same. She received initial dose of antibiotics as well as peridium and was discharged with remaining course. Differential Diagnosis Please see the discussion above Lab Data Please see the discussion above Labs: Lab Results 04/16/23 04/16/23 Range/Units 02:17 02:17 Urine Color Yellow Urine Appearance Cloudy Urine pH 7.0 (5.0-9.0) Ur Specific [place] 1.010 (1.005-1.025) Urine Protein 30 (1+) H (Neg-Trace) mg/dL Urine Glucose (UA) Negative (Negative) mg/dL Urine Ketones 15 (Negative) mg/dL Urine Blood Large (3+) H (Negative) Urine Nitrite Positive H (Negative) Ur Leukocyte Esterase Large (3+) H (Negative) Urine Test NEGATIVE (NEGATIVE) Discharge Plan Discharge Clinical Impression: UTI (urinary tract infection) Patient Disposition: Home, Self-Care Instructions: Urinary Tract Infection in Women (ED) Additional Instructions: 1. Complete the entire course of antibiotics. 2. You are receiving additional medications that will change the color of your urine in appear to be blood, but it is not blood. 3. Return to the ER for any worsening symptoms. Prescriptions: New nitrofurantoin monohyd/m-cryst [Macrobid] 100 mg capsule 100 mg PO Q12H 5 Days Qty: 10 0RF Rx Instructions: must administer with a meal/food phenazopyridine [Pyridium] 200 mg tablet 200 mg PO TID PRN (Reason: pain) Qty: 6 0RF No Action spironolactone 25 mg tablet 50 mg PO BID sennosides [senna] 8.6 mg tablet 8.6 mg PO BEDTIME PRN (Reason: constipation) 30 Days Qty: 30 2RF lactase [Lactaid] 3,000 unit tablet 3,000 unit PO QID PRN (Reason: lactose intolerance) Qty: 60 1RF Rx Instructions: administer with meals and/or snacks trazodone 100 mg tablet 100 mg PO BEDTIME desvenlafaxine succinate 50 mg tablet extended release 24 hr 50 mg PO DAILY Benefiber Clear SF (dextrin) 3 gram/3.5 gram powder in packet 2 packet PO BID 30 Days Qty: 120 1RF Rx Instructions: mix into at least 4 oz water or juice before administering Referrals: Nick Johnson MD [Primary Care Provider] -
[2023-04-16 02:32] LABS: Bacteria Urine 3+ (None Seen); Hyaline Casts Urine 0-2 /LPF (0-2); RBC Urine >20 /HPF (0-2); Squamous Epithelial Cell Urine 0-2 /HPF (0-2); UACC Culture Trigger YES; WBC Urine >50 /HPF (0-5)
[2023-04-16] MEDS: Nitrofurantoin Monohyd/M-Cryst 100 MG CAPSULE PO (02:50)
[2023-04-16] MEDS: Phenazopyridine HCL 200 MG TABLET PO (02:50)
== END 2023-04-16 02:53 | disposition home or self-care (01) ==
PROVIDERS: Emergency Provider Student in an Organized Health Care Education/Training Program; PCP Internal Medicine
DX: N39.0 Urinary tract infection, site not specified (principal); R30.0 Dysuria; Z79.899 Other long term (current) drug therapy
CPT/HCPCS: 81001; 81025; 87086; 87088; 87186; 99283

== ENCOUNTER 2023-05-08 15:27 | Outpatient (REF) | payer OTHER, SELFPAY ==
[2023-05-08 17:12] LABS: Rheumatoid Factor < 13.0 IU/mL (<15.0)
[2023-05-08 17:19] LABS: C Reactive Protein < 0.04 mg/dL (< or = 0.50)
[2023-05-08 17:34] LABS: Free T4 (Free Thyroxine) 0.89 ng/dL (0.71-1.85); Thyroid Stimulating Hormone 0.94 uIU/mL (0.32-4.0)
[2023-05-08 17:47] LABS: Erythrocyte Sedimentation Rate 2 MM/HR (0-20)
[2023-05-09 07:32] LABS: Thyroid Peroxidase Antibodies <1 IU/mL (<9)
[2023-05-09 13:34] LABS: Anti Nuclear Antibody Screen NEGATIVE (NEGATIVE)
== END 2023-05-08 15:28 | disposition home or self-care (01) ==
LOC: HO.LAB 15:27
PROVIDERS: PCP Internal Medicine; Visit Provider Internal Medicine
DX: H04.129 Dry eye syndrome of unspecified lacrimal gland (principal); K64.9 Unspecified hemorrhoids; F41.1 Generalized anxiety disorder
CPT/HCPCS: 36415; 46600; 84439; 84443; 85652; 86038; 86140; 86376; 86431

== ENCOUNTER 2023-07-17 16:12 | Outpatient (REF) | payer OTHER, SELFPAY ==
[2023-07-20 13:54] LABS: Antibody to SS-A Antigen <1.0 NEG AI (<1.0 NEG); Antibody to SS-B Antigen <1.0 NEG AI (<1.0 NEG)
== END 2023-07-17 16:13 | disposition home or self-care (01) ==
LOC: HO.LAB 16:12
PROVIDERS: PCP Internal Medicine; Visit Provider Internal Medicine
DX: H04.129 Dry eye syndrome of unspecified lacrimal gland (principal)
CPT/HCPCS: 36415; 86235

== ENCOUNTER 2023-11-07 17:01 | Outpatient (REF) | payer OTHER, SELFPAY ==
[2023-11-07 17:43] LABS: Influenza A PCR NEGATIVE (Negative); Influenza B PCR NEGATIVE (Negative); Resp Syncy Virus RNA Qual PCR NEGATIVE (Negative); SARS COV2 PCR INHOUSE NEGATIVE (Negative)
== END 2023-11-07 17:02 | disposition home or self-care (01) ==
LOC: HO.LNP 17:01
PROVIDERS: Visit Provider Internal Medicine
DX: Z11.52 Encounter for screening for COVID-19 (principal); Z20.822 Contact with and (suspected) exposure to COVID-19; R05.9 Cough, unspecified; R06.02 Shortness of breath; R51.9 Headache, unspecified
CPT/HCPCS: 0241U

== ENCOUNTER 2023-11-08 11:00 | Outpatient (REF) | payer OTHER, SELFPAY ==
[2023-11-08 11:16] LABS: MANUAL DIFF FLAG NO
[2023-11-08 13:05] LABS: Basophils Absolute Auto 0.1 X10*3/uL (0.0-0.2); Basophils Percent Auto 0.9 % (0-2); Eosinophils Absolute Auto 0.1 X10*3/uL (0.0-0.4); Eosinophils Percent Auto 2.4 % (0-4); Hematocrit 40.2 % (37.0-47.0); Imm Gran Abs Auto 0.01 X10*3/uL (0.00-0.03); Imm Gran Pct Auto 0.2 % (0.0-0.4); Lymphocytes Percent Auto 36.1 % (20-40); Mean Corpuscular HGB Conc 32.3 g/dl (31.0-35.0); Mean Corpuscular Hemoglobin 29.1 pg (27.0-33.0); Mean Corpuscular Volume 89.9 fL (80.0-98.0); Mean Platelet Volume 11.3 fL (9.4-12.3); Monocytes Absolute Auto 0.6 X10*3/uL (0.1-1.2); Neutrophils Absolute Auto 2.8 x10*3/uL (2.0-8.3); Neutrophils Percent Auto 50.4 % (45-73); Platelet Count 258 X10*3/uL (160-400); Red Blood Count 4.47 X10*6/uL (4.20-5.50); Red Cell Distribution Width 13.3 % (11.0-16.0); White Blood Count 5.5 X10*3/uL (4.8-10.8)
[2023-11-08 14:00] LABS: Alanine Aminotransferase 15 U/L (0-31); Albumin Level 4.5 g/dL (3.5-5.0); Alkaline Phosphatase 53 U/L (39-117); Anion Gap 11 (12-20); Aspartate Amino Transferase 19 U/L (5-31); Bilirubin Total 0.3 mg/dL (0.0-1.0); Blood Urea Nitrogen 10 mg/dL (9-16); C Reactive Protein < 0.04 mg/dL (< or = 0.50); Calcium 9.4 mg/dL (8.4-10.2); Carbon Dioxide 26 mmol/L (22-29); Chloride 105 mmol/L (96-108); Estimated Glomerular Filt Rate > 60; Glucose Random 80 mg/dL (60-115); Potassium 4.1 mmol/L (3.3-5.1); Sodium 138 mmol/L (135-145); Total Protein 7.5 g/dL (6.5-8.0)
[2023-11-08 14:07] LABS: Vitamin B12 411 pg/mL (200-900)
[2023-11-08 14:17] LABS: Thyroid Stimulating Hormone 0.62 uIU/mL (0.32-4.0)
== END 2023-11-08 11:01 | disposition home or self-care (01) ==
LOC: HO.LAB 11:00
PROVIDERS: PCP Internal Medicine; Visit Provider Internal Medicine
DX: R53.83 Other fatigue (principal); I95.9 Hypotension, unspecified
CPT/HCPCS: 36415; 80053; 82550; 82607; 84443; 85025; 86140

== ENCOUNTER 2023-12-12 09:57 | Outpatient (REF) | payer OTHER, SELFPAY ==
[2023-12-15 06:49] LABS: C. trachomatis RNA TMA NOT DETECTED (NOT DETECTED); N. gonorrhoeae RNA TMA NOT DETECTED (NOT DETECTED)
== END 2023-12-12 09:58 | disposition home or self-care (01) ==
LOC: HO.LNP 09:57
PROVIDERS: Visit Provider Nurse Practitioner Women's Health
DX: Z01.419 Encounter for gynecological examination (general) (routine) without abnormal findings (principal)
CPT/HCPCS: 87491; 87591; 88142

== ENCOUNTER 2024-05-17 15:12 | Outpatient (REF) | payer OTHER, SELFPAY ==
[2024-05-17 15:32] LABS: MANUAL DIFF FLAG NO
[2024-05-17 15:43] LABS: Basophils Percent Auto 0.5 % (0-2); Eosinophils Absolute Auto 0.1 X10*3/uL (0.0-0.4); Eosinophils Percent Auto 1.1 % (0-4); Hematocrit 40.7 % (37.0-47.0); Hemoglobin 13.4 g/dl (12.0-16.0); Imm Gran Abs Auto 0.02 X10*3/uL (0.00-0.03); Imm Gran Pct Auto 0.2 % (0.0-0.4); Lymphocytes Absolute Auto 2.1 X10*3/uL (1.2-4.9); Lymphocytes Percent Auto 26.4 % (20-40); Mean Corpuscular HGB Conc 32.9 g/dl (31.0-35.0); Mean Corpuscular Hemoglobin 27.9 pg (27.0-33.0); Mean Corpuscular Volume 84.6 fL (80.0-98.0); Mean Platelet Volume 11.1 fL (9.4-12.3); Monocytes Absolute Auto 0.7 X10*3/uL (0.1-1.2); Monocytes Percent Auto 8.8 % (2-11); Neutrophils Absolute Auto 5.1 x10*3/uL (2.0-8.3); Platelet Count 257 X10*3/uL (160-400); Red Blood Count 4.81 X10*6/uL (4.20-5.50); Red Cell Distribution Width 13.6 % (11.0-16.0)
[2024-05-17 16:29] LABS: Erythrocyte Sedimentation Rate 6 MM/HR (0-20)
[2024-05-17 16:42] LABS: Alanine Aminotransferase 13 U/L (0-31); Albumin Level 4.7 g/dL (3.5-5.0); Alkaline Phosphatase 50 U/L (39-117); Anion Gap 11 (12-20); Aspartate Amino Transferase 16 U/L (5-31); Bilirubin Total 0.3 mg/dL (0.0-1.0); Blood Urea Nitrogen 11 mg/dL (9-16); C Reactive Protein < 0.10 mg/dL (< or = 0.50); Calcium 9.7 mg/dL (8.4-10.2); Carbon Dioxide 26 mmol/L (22-29); Chloride 105 mmol/L (96-108); Estimated Glomerular Filt Rate > 60; Glucose Random 90 mg/dL (60-115); Magnesium 2.1 mg/dL (1.6-2.6); Potassium 4.2 mmol/L (3.3-5.1); Sodium 138 mmol/L (135-145)
== END 2024-05-17 15:13 | disposition home or self-care (01) ==
LOC: HO.LAB 15:12
PROVIDERS: PCP Internal Medicine; Visit Provider Internal Medicine
DX: R10.9 Unspecified abdominal pain (principal); K58.0 Irritable bowel syndrome with diarrhea
CPT/HCPCS: 36415; 80053; 82550; 83735; 85025; 85652; 86140

== ENCOUNTER 2024-07-23 14:28 | Outpatient (REF) | payer OTHER, SELFPAY | END 2024-07-23 14:29 | disposition home or self-care (01) | LOC: HO.LNP 14:28 | PROVIDERS: Visit Provider Obstetrics & Gynecology | DX: R30.0 Dysuria (principal) | CPT/HCPCS: 87086 ==

== ENCOUNTER 2024-10-01 08:51 | Outpatient (REF) | payer OTHER, SELFPAY ==
[2024-10-01 10:56] LABS: UPreg QC Valid YES; Urine Pregnancy NEGATIVE (NEGATIVE)
[2024-10-01 11:21] LABS: Alanine Aminotransferase 16 U/L (0-31); Albumin Level 4.4 g/dL (3.5-5.0); Alkaline Phosphatase 56 U/L (39-117); Aspartate Amino Transferase 20 U/L (5-31); Bilirubin Direct 0.1 mg/dL (0.0-0.5); Bilirubin Total 0.3 mg/dL (0.0-1.0); Cholesterol 220 mg/dL (<200); HDL Cholesterol 50 mg/dL (>40); LDL Cholesterol Calculated 155 mg/dL (<100); Total Protein 7.5 g/dL (6.5-8.0); Triglycerides 75 mg/dL (<150)
== END 2024-10-01 08:52 | disposition home or self-care (01) ==
LOC: HO.10HDL 08:51
PROVIDERS: Visit Provider Dermatology
DX: Z13.6 Encounter for screening for cardiovascular disorders (principal); L70.0 Acne vulgaris
CPT/HCPCS: 36415; 80061; 80076; 81025

== ENCOUNTER 2024-10-24 09:22 | Outpatient (AMB) | payer OTHER, SELFPAY ==
--- NOTE | 2024-10-24 09:24 | MHC.OFFVIS ---
Vital Signs 10/24/24 09:31 Height 5 ft 6 in Weight 125 lb BMI 20.2 Intake Visit Reasons: follow up Hemorrhoids Intake Note: This patient presents for follow up Hemorrhoids. Pt c/o; reports occasional rectal bleeding, reports pain, reports painful bowel movements for about over one month, occasional deep ache, stinging itch, walking uncomfortable and sitting. [employer] Workers Required: No Swimming Pool Maintenance Supervisor: Swimming Pool Maintenance Supervisor offered & declined Accompanied by: Self / Same As Patient Allergies lactose Allergy (Intermediate, Verified 10/24/24 09:24) Gastrointestinal Upset Medication List - Last Reconciled 10/24/24 by Nick Brown MD desvenlafaxine succinate ER 50 mg PO DAILY escitalopram oxalate 10 mg PO DAILY lactase (Lactaid) 3,000 units PO QID PRN nitrofurantoin monohyd/m-cryst 100 mg (Macrobid) 100 mg PO Q12H 5 days nitroglycerin 0.4%(w/w) (Rectiv) 1 inch UT BID phenazopyridine (Pyridium) 200 mg PO TID PRN 6 doses sennosides (senna) 8.6 mg PO BEDTIME PRN 30 days spironolactone 50 mg PO BID trazodone 100 mg PO BEDTIME wheat dextrin (Benefiber Clear Sugar Free(dextrin)) 2 packets (2 x 3 gram/3.5 gram) PO BID 30 days HPI HPI follow up Hemorrhoids: Details: [age] year old female here for anal pain. I had seen her last year for what we felt was bleeding hemorrhoids. Her main problem then was she had frequent bleeding and we had held off on surgery as she did not have any large hemorrhoidal columns However, for the past few months, she had been noticing more of pain with bowel movements. She describes this as very sharp pain like a knife cutting her anus whenever she has bowel movements. This would often linger for a couple of hours. She says that she would ?dread? having a bowel movement because she anticipates the pain She would notice small amounts of blood on wiping as well but this is not as much as before. [facility] Medical History (Updated 10/24/24 @ 09:58 by Nick Brown MD) Anal pain Bleeding hemorrhoids Dysuria Iron deficiency anemia due to chronic blood loss Familial hypercholesterolemia Hot flashes ZULEIKA (generalized anxiety disorder) Insomnia Chronic urinary bladder pain Acne cosmetica Surgical History Hx of colonoscopy History of esophagogastroduodenoscopy (EGD) Social History Housing: House Alcohol intake: current Alcohol intake frequency: holidays/special occasions only Alcohol type: beer and wine Patient Tobacco Use Status: Never used Tobacco e-Cigarette/Vaping Use: Never Used service: No Current occupational status: employed and student Gender identity: Female Cognitive needs: No Hearing needs: No Vision needs: No Female Reproductive History Menstrual Age of Menarche: 11 Review of Systems Const Denies chills and Denies fever(s) Card Denies chest pain, Denies dyspnea and Denies dyspnea on exertion Resp Denies cough, Denies dyspnea and Denies dyspnea on exertion GI Reports hematochezia and Denies change in bowel habits Denies hematuria Musc Denies back pain and Denies limited range of motion Neuro Denies focal weakness and Denies convulsions Psych Denies depression and Denies mood swings Physical Exam Vital Signs: BMI result Body Mass Index 20.2 Const General: comfortable and no acute distress Orientation/consciousness: patient oriented x3 Neck Neck: Yes no lymphadenopathy Resp Auscultation: clear to auscultation bilaterally Cardio Rhythm: regular rhythm GI Other: Rectal exam shows small external hemorrhoids on the anterior aspect; I attempted to do digital exam and retraction of the anus but she was very tender and had significant pain. She had a very hypertonic sphincter and I was unable to do any anoscopy as well Palpation (GI): Soft to palpation, nontender and no guarding Neuro General: patient oriented x3 Assessment & Plan Assessment & Plan (1) Anal pain: Code(s): K62.89 - Other specified diseases of anus and rectum Category: Medical Plan: She describes severe anal pain with passage of stool consistent with an anal fissure. She has a hypertonic sphincter on examination I therefore explained to her the option of proceeding with lateral internal sphincterotomy. I explained the technique of this procedure. I reviewed the risks including but not limited to bleeding, infections, as well as the benefits and alternatives. I explained to her the option of using nitroglycerin or nifedipine cream to relax her sphincter muscle. She is considering proceeding with exam under anesthesia lateral internal sphincterotomy but would like to try Rective for now. She says she will call the office once she decides to proceed with surgery. Medications: New nitroglycerin 0.4%(w/w) (Rectiv) 1 inch UT BID 30 grams 0RF Coding Level of Care Code Est Pt Level 3 (66174) Diagnoses Anal pain K62.89
[2024-10-24 09:31] VITALS: BMI 20.2
== END 2024-10-24 09:57 | disposition home or self-care (01) ==
PROVIDERS: PCP Internal Medicine; Visit Provider Surgery
DX: K62.89 Other specified diseases of anus and rectum (principal)
CPT/HCPCS: 99213

== ENCOUNTER → 2024-10-24 09:22 | Outpatient (BNVA) | payer OTHER, SELFPAY | PROVIDERS: PCP Internal Medicine; Visit Provider Surgery ==

== ENCOUNTER 2024-10-31 07:25 | Outpatient (REF) | payer OTHER, SELFPAY ==
[2024-10-31 08:14] LABS: Alanine Aminotransferase 19 U/L (0-31); Albumin Level 4.3 g/dL (3.5-5.0); Alkaline Phosphatase 48 U/L (39-117); Aspartate Amino Transferase 20 U/L (5-31); Bilirubin Direct 0.1 mg/dL (0.0-0.5); Bilirubin Total 0.3 mg/dL (0.0-1.0); Cholesterol 195 mg/dL (<200); HDL Cholesterol 52 mg/dL (>40); LDL Cholesterol Calculated 130 mg/dL (<100); Total Protein 7.2 g/dL (6.5-8.0); Triglycerides 66 mg/dL (<150)
[2024-10-31 08:17] LABS: UPreg QC Valid YES; Urine Pregnancy NEGATIVE (NEGATIVE)
[2024-10-31 08:46] LABS: Reflex LDLD? No
== END 2024-10-31 07:26 | disposition home or self-care (01) ==
LOC: HO.LAB 07:25
PROVIDERS: PCP Internal Medicine; Visit Provider Dermatology
DX: Z13.6 Encounter for screening for cardiovascular disorders (principal); L70.0 Acne vulgaris
CPT/HCPCS: 36415; 80061; 80076; 81025

== ENCOUNTER 2024-11-28 08:29 | Outpatient (REF) | payer OTHER, SELFPAY ==
[2024-11-28 09:04] LABS: Hematocrit 36.9 % (37.0-47.0); Mean Corpuscular HGB Conc 32.5 g/dl (31.0-35.0); Mean Corpuscular Hemoglobin 26.3 pg (27.0-33.0); Mean Corpuscular Volume 80.7 fL (80.0-98.0); Mean Platelet Volume 10.5 fL (9.4-12.3); Platelet Count 241 X10*3/uL (160-400); Red Blood Count 4.57 X10*6/uL (4.20-5.50); Red Cell Distribution Width 15.7 % (11.0-16.0); White Blood Count 4.4 X10*3/uL (4.8-10.8)
[2024-11-28 09:27] LABS: Alanine Aminotransferase 24 U/L (0-31); Albumin Level 4.3 g/dL (3.5-5.0); Alkaline Phosphatase 46 U/L (39-117); Anion Gap 11 (12-20); Aspartate Amino Transferase 20 U/L (5-31); Bilirubin Total 0.2 mg/dL (0.0-1.0); Blood Urea Nitrogen 12 mg/dL (9-16); Calcium 8.5 mg/dL (8.4-10.2); Carbon Dioxide 22 mmol/L (22-29); Chloride 110 mmol/L (96-108); Cholesterol 204 mg/dL (<200); Estimated Glomerular Filt Rate > 60; Glucose Random 91 mg/dL (60-115); HDL Cholesterol 57 mg/dL (>40); LDL Cholesterol Calculated 135 mg/dL (<100); Potassium 4.1 mmol/L (3.3-5.1); Sodium 139 mmol/L (135-145); Total Protein 7.3 g/dL (6.5-8.0); Triglycerides 63 mg/dL (<150)
[2024-11-28 09:57] LABS: Free T4 (Free Thyroxine) 0.93 ng/dL (0.71-1.85); Thyroid Stimulating Hormone 1.25 uIU/mL (0.32-4.0)
[2024-11-28 10:42] LABS: Insulin 8 uU/mL (2-29)
[2024-11-29 16:57] LABS: Triiodothyronine T3 Free 3.2 pg/mL (2.3-4.2)
[2024-11-29 18:38] LABS: Follicle Stimulating Hormone 7.5 mIU/mL
[2024-11-29 21:44] LABS: CRP High Sensitivity 0.2 mg/L
[2024-12-02 21:19] LABS: Testosterone, Free 1.8 pg/mL (0.1-6.4); Testosterone, Total 19 ng/dL (2-45)
[2024-12-04 18:32] LABS: Progesterone 0.7 ng/mL
[2024-12-05 03:33] LABS: Dihydrotestosterone 19 ng/dL (< OR = 20)
[2024-12-08 08:09] LABS: Estradiol Ultra Sensitive 149 pg/mL
== END 2024-11-28 08:30 | disposition home or self-care (01) ==
LOC: HO.LAB 08:29
PROVIDERS: PCP Internal Medicine; Visit Provider Internal Medicine
DX: E03.9 Hypothyroidism, unspecified (principal); F32.81 Premenstrual dysphoric disorder; D64.9 Anemia, unspecified; E28.2 Polycystic ovarian syndrome; E78.5 Hyperlipidemia, unspecified; K76.0 Fatty (change of) liver, not elsewhere classified; R53.83 Other fatigue
CPT/HCPCS: 36415; 80053; 80061; 82642; 82670; 83001; 83002; 83525; 84144; 84402; 84403; 84439; 84443; 84481; 85027; 86141

== ENCOUNTER 2024-11-29 07:59 | Day surgery (SDC) | payer OTHER, SELFPAY ==
[2024-11-27 10:54] VITALS: BMI 20.2
[2024-11-29] VITALS (7 sets, daily range): BP systolic 93–120; BP diastolic 58–80; PULSE 62–92; RESP 16–18; TEMP 36.7–37.1; O2SAT 97–100; BMI 20.3
[2024-11-29 08:20] LABS: UPreg QC Valid YES; Urine Pregnancy NEGATIVE (NEGATIVE)
[2024-11-29] MEDS: Lactated Ringers 1,000 ML 100 ML IVCONT (08:22)
--- NOTE | 2024-11-29 08:37 | HO.ANESPROP2 ---
Documented by User: Virginia Moscoso NP 11/27/24 13:45 HPI - Anesthesia Eval Consult details Narrative: 24yo F for EUA,Lateral Internal Sphincterotomy PMFSH Active Problems Active Problems: All Active Problems Anal pain (Acute) Bleeding hemorrhoids (Acute) Bright red rectal bleeding (Acute) Encounter for diagnostic colonoscopy due to change in bowel habits (Acute) Bloating (Acute) Hemorrhoids (Acute) Alternating constipation and diarrhea (Acute) Chronic diarrhea (Acute) Dysuria (Acute) Iron deficiency anemia due to chronic blood loss (Acute) Familial hypercholesterolemia (Acute) Hot flashes (Acute) ZULEIKA (generalized anxiety disorder) (Acute) Acne cosmetica (Acute) Insomnia (Acute) Chronic urinary bladder pain (Acute) control counseling (Acute) Upper respiratory tract infection (Acute) Past Medical History Medical History (Updated 10/24/24 @ 09:58 by Nick Brown MD) Anal pain Bleeding hemorrhoids Dysuria Iron deficiency anemia due to chronic blood loss Familial hypercholesterolemia Hot flashes ZULEIKA (generalized anxiety disorder) Insomnia Chronic urinary bladder pain Acne cosmetica Family History Family history of problems with anesthesia: No Surgical History Surgical History Hx of colonoscopy History of esophagogastroduodenoscopy (EGD) History of Problems with Anesthesia: No Social History Social History Household Members Other:: dad Housing: House Are you a primary career development facilitator to a significant other at home: No Do you presently have visiting nurse or other home services: No Alcohol intake: current Alcohol intake frequency: holidays/special occasions only Alcohol type: beer and wine Patient Tobacco Use Status: Never used Tobacco e-Cigarette/Vaping Use: Never Used Have you been hit, kicked, punched, or otherwise hurt by someone within the past year? If so, by whom?: No Are you DNR?: No Advance Directives: No Advance Directives Information Provided: Yes Nutrition Risks: No Nutritional Risk FDLMP: currently service: No Current occupational status: employed and student Gender identity: Female Cognitive needs: No Hearing needs: No Vision needs: No Meds Allergies Allergy/AdvReac Type Severity Reaction Status Date / Time lactose Allergy Intermediate Gastrointestinal Verified 10/24/24 09:24 Upset Home Medications ?Medication ?Instructions ?Recorded ?Confirmed ?Last Taken ?Type trazodone 100 mg tablet 100 mg PO BEDTIME 12/27/22 11/27/24 Unknown History desvenlafaxine succinate 50 mg 50 mg PO DAILY 02/06/23 11/27/24 Unknown History tablet,extended release 24 hr escitalopram oxalate 10 mg tablet 10 mg PO DAILY 10/24/24 11/27/24 Unknown History Exam Height,Weight and Vital Signs: Height 5 ft 6 in Weight 56.699 kg Pertinent Lab Results Pertinent Lab Results: Laboratory Tests 05/17/24 15:31 WBC 8.0 Hgb 13.4 Hct 40.7 Plt Count 257 Sodium 138 Potassium 4.2 Chloride 105 Carbon Dioxide 26 BUN 11 Creatinine 0.76 Assessment and Plan Assessment Anesthesia Assessment: Chart Reviewed Final Anesthetic Review Family History of Problems with Anesthesia: No History of Problems with Anesthesia: No Documented by User: Debbie Collazo DO 11/29/24 08:37 [facility] Past Medical History Medical History (Updated 10/24/24 @ 09:58 by Nick Brown MD) Anal pain Bleeding hemorrhoids Dysuria Iron deficiency anemia due to chronic blood loss Familial hypercholesterolemia Hot flashes ZULEIKA (generalized anxiety disorder) Insomnia Chronic urinary bladder pain Acne cosmetica Family History Family history of problems with anesthesia: No Surgical History Surgical History Hx of colonoscopy History of esophagogastroduodenoscopy (EGD) History of Problems with Anesthesia: No Social History Social History Household Members Other:: dad Housing: House Are you a primary career development facilitator to a significant other at home: No Do you presently have visiting nurse or other home services: No Alcohol intake: current Alcohol intake frequency: holidays/special occasions only Alcohol type: beer and wine Patient Tobacco Use Status: Never used Tobacco e-Cigarette/Vaping Use: Never Used Have you been hit, kicked, punched, or otherwise hurt by someone within the past year? If so, by whom?: No Are you DNR?: No Advance Directives: No Advance Directives Information Provided: Yes Nutrition Risks: No Nutritional Risk FDLMP: currently service: No Current occupational status: employed and student Gender identity: Female Cognitive needs: No Hearing needs: No Vision needs: No Meds Allergies Allergy/AdvReac Type Severity Reaction Status Date / Time lactose Allergy Intermediate Gastrointestinal Verified 10/24/24 09:24 Upset Home Medications ?Medication ?Instructions ?Recorded ?Confirmed ?Last Taken ?Type trazodone 100 mg tablet 100 mg PO BEDTIME 12/27/22 11/27/24 Unknown History desvenlafaxine succinate 50 mg 50 mg PO DAILY 02/06/23 11/27/24 Unknown History tablet,extended release 24 hr escitalopram oxalate 10 mg tablet 10 mg PO DAILY 10/24/24 11/27/24 Unknown History Exam Exam Date and Time: 11/29/24 0835 Height,Weight and Vital Signs: Height 5 ft 6 in Weight 56.699 kg Vital Signs Temperature 98.2 F 11/29/24 08:28 Pulse Rate 89 11/29/24 08:28 Respiratory Rate 18 11/29/24 08:28 Blood Pressure 120/71 11/29/24 08:28 Pulse Oximetry 98 11/29/24 08:28 Oxygen Delivery Method Room Air 11/29/24 08:28 Temperature 98.2 F 11/29/24 08:28 Pulse Rate 89 11/29/24 08:28 Respiratory Rate 18 11/29/24 08:28 Blood Pressure 120/71 11/29/24 08:28 Pulse Oximetry 98 11/29/24 08:28 Oxygen Delivery Method Room Air 11/29/24 08:28 Airway Mallampati Class: I TM Dist: >3cm Neck ROM: Full Loose/Missing/Broken Teeth: No (patient denies any loose or broken teeth) Heart: S1S2 Lungs: CTAB Assessment and Plan Assessment Anesthesia Assessment: Anesthesia Plan Discussed and Chart Reviewed Final Anesthetic Review Family History of Problems with Anesthesia: No History of Problems with Anesthesia: No NPO: Yes ASA Class: II Final Preanesthetic Review: No Changes in Pt Med Stat, Meds/Allgs Chart Reviewed, Consent Obtained/Reviewed and Anes Risks/Benef Reviewed Patient Risk: Low Procedure Risk: Low Anesthetic Plan Anesthetic Plan: GA and Agree w/ Assess. and Plan Disposition: Standard PACU
--- NOTE | 2024-11-29 08:38 | MHC.SHP ---
Pre-Procedural Eval Section A - 24 Hr Update-Section A only Date of Service: 11/29/24 Section B - Complete if H&P > 30 days Chief Complaint: Other specified diseases of anus and rectum Details of Present Illness: Has a long history of severe anal pain with bowel movements, hypertonic sphincter and exam Relevant Family History (Specify if Yes): No Relevant Social History: None Present Medications: see Short Stay Collaborative assessment Medical History: Significant History (Anxiety) History of Previous Operations: No relevant previous surgery Allergies: Allergies Allergy/AdvReac Type Severity Reaction Status Date / Time lactose Allergy Intermediate Gastrointestinal Verified 10/24/24 09:24 Upset Review of Systems Sugical H&P ROS: Negative: Constitution, Cardiovascular, Respiratory and Gastrointestinal Exam Surgical H&P Exam: Normal: Heart, Normal: Lungs and Normal: Abdomen Exam Comment: Has had hypertonic sphincter with tenderness Plan Diagnosis/Plan: Unchanged I have reviewed the history and physical and performed a pertinent physical examination on my patient. No changes have occurred unless specified. Time Spent With Patient Time: Total time managing care of this patient today ____ minutes.
--- NOTE | 2024-11-29 09:36 | P.OP_ITS ---
Operative Note Operative Note Date of Service: 11/29/24 Narrative: Preop diagnosis: Anal pain likely anal fissure Postop diagnosis: Anal fissure, anterior midline Procedure: Exam anesthesia, left lateral internal sphincterotomy Surgeon: Nick Brown MD The patient is a 24 year old female, with pain with bowel movements along with passage of bright blood per rectum. Examination in the office suggested an anal fissure. She understood the technique of exam under anesthesia and lateral internal sphincterotomy. She was aware of the risks, benefits, and alternatives She was brought to the operating room. She was placed in prone elizabeth-knife position under general anesthesia via laryngeal mask airway. The buttocks were retracted with wide tape laterally. The perianal area was prepped and draped in the usual sterile fashion. A surgical time-out was done. The patient received Cefotan 2 g IV preoperatively I infiltrated the perianal area with lidocaine 1%. Examination of the anal orifice by retracted showed an anterior midline fissure. I inserted the Charlette Iniguez retractor. I examined the anal canal circumferentially. There were no other lesions. There was no ulceration or any active bleeding. There was note of an anterior midline fissure on the distal anoderm along with a sentinel pile. I palpated for the intersphincteric groove on the left side. I made a short incision on the skin overlying this using blade 11. I then used the hemostat to isolate the internal sphincter. I positioned this hemostat in the intersphincteric plane. I divided the internal sphincter with electrocautery down to the level of the dentate line I observed for hemostasis. I then closed the incision with a running chromic 3- 0 stitch. I cauterized the fissure a little bit to promote faster healing Once hemostasis was confirmed, I infiltrated the perianal area with Marcaine 0.5% for postop analgesia. The procedure was then completed The patient tolerated the procedure well. There were no immediate complications. There was minimal blood loss The patient was extubated without difficulty and transferred to the recovery room with stable vital signs.
[2024-11-29] MEDS: fentaNYL citrate/PF 100 MCG/2 ML VIAL 50 MCG IVPUSH (09:57)
[2024-11-29] MEDS: Acetaminophen 325 MG TABLET 650 MG PO (10:23)
== END 2024-11-29 10:46 | disposition home or self-care (01) ==
PROVIDERS: Nurse Practitioner; PCP Internal Medicine; Visit Provider Surgery
PROC: (CPT 46080; principal; 2024-11-29 09:30)
DX: K60.2 Anal fissure, unspecified (principal); K62.89 Other specified diseases of anus and rectum; K64.4 Residual hemorrhoidal skin tags; K64.8 Other hemorrhoids; D50.0 Iron deficiency anemia secondary to blood loss (chronic); E78.01 Familial hypercholesterolemia; R30.0 Dysuria; L70.0 Acne vulgaris; G47.00 Insomnia, unspecified; E73.9 Lactose intolerance, unspecified; Z79.899 Other long term (current) drug therapy; F41.9 Anxiety disorder, unspecified
CPT/HCPCS: 46080; 81025; J2003; J2704; J2795; J3010

== ENCOUNTER → 2024-11-29 07:59 | Outpatient (BNV) | payer OTHER, SELFPAY | PROVIDERS: PCP Internal Medicine; Visit Provider Surgery | DX: K60.2 Anal fissure, unspecified (principal) | CPT/HCPCS: 46080 ==

== ENCOUNTER 2024-12-12 10:21 | Outpatient (AMB) | payer OTHER, SELFPAY ==
--- NOTE | 2024-12-12 10:30 | MHC.OFFVIS ---
Intake Visit Reasons: S/P EUA, lateral internal sphincterotomy Intake Note: This patient presents for post-op assessment status post EUA, left lateral internal sphincterotomy. Pt c/o: no post operative concerns. Surgery date: 11/29/24 Answering Service Telephone Operator Required: No Accompanied by: Self / Same As Patient Allergies lactose Allergy (Intermediate, Verified 12/12/24 10:36) Gastrointestinal Upset HPI HPI S/P EUA, lateral internal sphincterotomy: Details: She underwent lateral internal sphincterotomy for an anal fissure last 11/29/2024. She tolerated procedure well. She currently denies significant complaints. She says that her bowel movements are much better now without significant pain. [facility] Medical History (Updated 12/12/24 @ 10:33 by Nick Brown MD) Anal fissure Anal pain Bleeding hemorrhoids Dysuria Iron deficiency anemia due to chronic blood loss Familial hypercholesterolemia Hot flashes ZULEIKA (generalized anxiety disorder) Insomnia Chronic urinary bladder pain Acne cosmetica Surgical History (Updated 12/12/24 @ 10:37 by Hannah Ortiz [facility]) Hx of surgical procedure (~11/29/24) Hx of colonoscopy History of esophagogastroduodenoscopy (EGD) Social History Household Members Other:: dad Housing: House Are you a primary senior caregiver to a significant other at home: No Do you presently have visiting nurse or other home services: No Alcohol intake: current Alcohol intake frequency: holidays/special occasions only Alcohol type: beer and wine Patient Tobacco Use Status: Never used Tobacco e-Cigarette/Vaping Use: Never Used service: No Current occupational status: employed and student Gender identity: Female Cognitive needs: No Hearing needs: No Vision needs: No Female Reproductive History Menstrual Age of Menarche: 11 Review of Systems Const Denies chills and Denies fever(s) Physical Exam Const General: comfortable and no acute distress Resp Effort & Inspection: normal respiratory effort GI Other: Rectal exam shows the sphincterotomy site on the left is well healed, not infected, no induration Assessment & Plan Assessment & Plan (1) Anal fissure: Code(s): K60.2 - Anal fissure, unspecified Category: Medical Plan: Status post lateral internal sphincterotomy for an anal fissure. She is doing very well. Her incision is well healed. She is happy with the outcome. She can follow up on a p.r.n. basis. Coding Level of Care Code Global (23567) Diagnoses Anal fissure K60.2
== END 2024-12-12 10:45 | disposition home or self-care (01) ==
PROVIDERS: PCP Internal Medicine; Visit Provider Surgery
DX: K60.2 Anal fissure, unspecified (principal)
CPT/HCPCS: 99024

== ENCOUNTER 2024-12-19 09:15 | Outpatient (REF) | payer OTHER, SELFPAY ==
[2024-12-19 10:43] LABS: Hematocrit 37.6 % (37.0-47.0); Hemoglobin 12.2 g/dl (12.0-16.0); Mean Corpuscular HGB Conc 32.4 g/dl (31.0-35.0); Mean Corpuscular Hemoglobin 26.4 pg (27.0-33.0); Mean Corpuscular Volume 81.4 fL (80.0-98.0); Platelet Count 239 X10*3/uL (160-400); Red Blood Count 4.62 X10*6/uL (4.20-5.50); Red Cell Distribution Width 15.6 % (11.0-16.0); White Blood Count 5.7 X10*3/uL (4.8-10.8)
[2024-12-19 11:19] LABS: Glucose Fasting 81 mg/dL (60-99)
[2024-12-19 11:31] LABS: Alanine Aminotransferase 22 U/L (0-31); Albumin Level 4.5 g/dL (3.5-5.0); Alkaline Phosphatase 48 U/L (39-117); Anion Gap 10 (12-20); Aspartate Amino Transferase 19 U/L (5-31); Bilirubin Total 0.3 mg/dL (0.0-1.0); Blood Urea Nitrogen 10 mg/dL (9-16); Calcium 9.2 mg/dL (8.4-10.2); Carbon Dioxide 25 mmol/L (22-29); Chloride 107 mmol/L (96-108); Cholesterol 218 mg/dL (<200); Estimated Glomerular Filt Rate > 60; Glucose Random 82 mg/dL (60-115); HDL Cholesterol 55 mg/dL (>40); LDL Cholesterol Calculated 152 mg/dL (<100); Sodium 138 mmol/L (135-145); Total Protein 7.9 g/dL (6.5-8.0); Triglycerides 58 mg/dL (<150)
[2024-12-19 11:42] LABS: Thyroid Stimulating Hormone 1.04 uIU/mL (0.32-4.0)
--- OUTSIDE RECORDS SUMMARY | 2024-12-19 12:27 | XMS_ITS | Clinical Summary ---
Author Organization [facility] Address [address] [place] [address] Care Team Providers Care Lithographer Apprentice Name Role Phone Nick Johnson Primary Care Provider [phone] Allergies No known active allergies Medications dapsone 5 % topical gel 07/05/2024 Active escitalopram (LEXAPRO) 10 mg tablet 08/08/2024 Active Xiidra 5 % dropperette 01/24/2024 Active traZODone (DESYREL) 100 mg tablet 07/01/2024 Active valACYclovir (VALTREX) 500 mg tablet 01/22/2024 Active erythromycin (ILOTYCIN) 0.5% ophthalmic ointment Apply 0.5 inches to right eye 4 times a day. 3.5 g 08/20/2024 Active Family History Medical History Relation Name Comments No Known Problems Father No Known Problems Mother Relation Name Status Comments Father Alive Mother Alive Social History Tobacco Use Types Packs/Day Years Used Date Smoking Tobacco: Never Smokeless Tobacco: Never Alcohol Use Standard Drinks/Week Comments Yes 0 (1 standard drink = 0.6 oz pur e alcohol) occ Comments No Sex and Gender Information Value Date Recorded Sex Assigned at Not on file Legal Sex Female 12:30 PM EDT Gender Identity Not on file Sexual Orientation Not on file Last Filed Vital Signs Vital Sign Reading Time Taken Comments Blood Pressure 108/72 08/20/2024 1:32 PM EDT Pulse 78 08/20/2024 1:32 PM EDT Temperature 36.8 ??C (98.2 ??F) 08/20/2024 1:32 PM ED T Respiratory Rate - - Oxygen Saturation 98% 08/20/2024 1:32 PM EDT Inhaled Oxygen Concentration - - Weight - - Height - - Body Mass Index - - Plan of Treatment Health Maintenance Due Date Last Done Comments HIV Screening 1999 Hepatitis C Screening 1999 Pap Smear 1999 Varicella Vaccines (2 of 2 - 2-dose childhood series) 2003 04/03/2000 DTaP,Tdap,and Td Vaccines (6 - Tdap) 2010 04/01/2003, 07/19/2000, 1999, Additional history exists HPV Vaccines (1 - 3-dose series) 2014 COVID-19 Vaccine ( - 2023-2 5 season) 2024 Influenza Vaccine (#1) 2024 Alcohol/Substance Use Screening 11/20/2024 Depression Screening and Follow-Up 11/20/2024 Social Drivers of Health Duyen ual Screening 11/20/2024 RSV Vaccine (60+ years old a nd patients) (1 - 1-dose 75+ series) 2074 Hepatitis B Vaccines Completed 1999, 1999, 1999 Pneumococcal Vaccine: Pediat yancy (0-5 Years) and At-Risk Patients (6-64 Years) Completed 10/18/2000, 07/19/2000 Insurance [employer] Care Teams Lithographer Apprentice Relationship Specialty Start Date End Date Nick Johnson [address] [place] [address] [place] [address] PCP - General Internal Medicine 08/20/24
--- OUTSIDE RECORDS SUMMARY | 2024-12-19 12:27 | XMS_ITS | Data Portability ---
Author Organization [facility], [address] Address [address] [place] [address] Assessment No assessment recorded. Plan of Treatment Reminders Order Date Submit Date Provider Last Modified By Organization Details Last Modified Time Details Appointments None recorded. Lab None recorded. Referral None recorded. Procedures None recorded. Surgeries None recorded. Imaging None recorded. Medication Orders Augmentin 875 mg-125 mg tablet 2022 023 [facility] #[id number], [address], [place], [id number], 19:38:59 prednisone 20 mg tablet 2022 023 [facility] [employer] [facility] [employer] #[id number], [address], [place], [id number], 19:38:59 fluconazole 150 mg tablet 2022 023 [facility] [employer] [facility] [employer] #[id number], [address], [place], [id number], 19:38:58 Patient TargetsNo targets recorded. Patient Instructions Encounter Date Encounter Id Patient Instructions Last Modified By Organization Details Last Modified Time 01/14/2023 [id number] earache: care instructions Not available 01/14/2023 19:38:50 ear infection (otitis media): care instructions Not available 01/14/2023 19:38:50 An ear infection may start with a cold and affect the middle ear (otitis media). It can hurt a lot. Most ear infections clear up on their own in a couple of days and do not need antibiotics. Also, antibiotics do not work against viruses, which may be the cause of your infection. Regular doses of pain relievers are the best way to reduce your fever and help you feel better. How can you care for yourself at home? Take pain medicines exactly as directed. If the doctor gave you a prescription medicine for pain, take it as prescribed. If you are not taking a prescription pain medicine, take an fsnc-cje-mwhybzl medicine, such as acetaminophen (Tylenol), ibuprofen (Advil, Motrin), or naproxen (Aleve). Read and follow all instructions on the label. Do not take two or more pain medicines at the same time unless the doctor told you to. Many pain medicines have acetaminophen, which is Tylenol. Too much acetaminophen (Tylenol) can be harmful. Plan to take a full dose of pain reliever before bedtime. Getting enough sleep will help you get better. Try a warm, moist face cloth on the ear. It may help relieve pain. If your doctor prescribed antibiotics, take them as directed. Do not stop taking them just because you feel better. You need to take the full course of antibiotics. Not available 01/14/2023 19:38:27 Reason for Referral None Reported. Problems Name Problem SNOMED Code Status Onset Date Resolution Date Notes Provider Name and Address Organization Details Recorded Time Insomnia 979518197 Active 023 JESSIE dolan [facility] 18:41:13 Anxiety 01079249 Active 023 JESSIE dolan [facility] 18:41:29 Problem Notes None recorded. Medical Equipment None Reported. Allergies No known drug allergies Medications Name Sig Start Date Stop Date Status Note LastModified by Organization Details LastModified Time Augmentin 875 mg-125 mg tablet Take 1 tablet every 12 hours by oral route with meals for 10 days. 2022 active Not Available Not Available Not Avai lable fluconazole 150 mg tablet Take 1 tablet every day by oral route as needed for 1 day. 2022 active Not Available Not Available Not Avai lable prednisone 20 mg tablet Take 2 tablets every day by oral route in the morning for 3 days. 2022 active Not Available Not Available Not Avai lable trazodone 100 mg tablet Take 1 tablet twice a day by oral route. active Not Available Not Available No t Available sertraline active Not Available Not Av ailable Not Available spironolactone active Not Available No t Available Not Available Vitals Date Recorded Body height Provider Name an d Address Organization Details Last Updated DateTime 01/14/2023 167.64 cm JESSIE DANIELLEAU PA - [facility] 01/14/2023 18:42:35 Date Recorded Body mass index (BMI) Body weight Provider Name and Address Organization Details Last Updated DateTime 01/14/2023 18.6 kg/m2 69817.12 g JESSIE NASHTEAU PA - [facility] 01/14/2023 18:42:46 Date Recorded Pain severity - 0-10 verbal numeric rating [Score] - Reported Provider Name and Address Organization Details Last Updated DateTime 01/14/2023 4 JESSIE CLARIBEL PA - [facility] 01/14/2023 18:42:49 Date Recorded Oxygen saturation Oxygen saturation in Arterial blood by Pulse oximetry Provider Name and Address Organization Details Last Updated DateTime 01/14/2023 98 % 98 % JESSIE CLARIBEL PA - [facility] 01/14/2023 18:44:56 Date Recorded Heart rate Provider Name an d Address Organization Details Last Updated DateTime 01/14/2023 74 /min JESSIE DANIELLEAU PA - [facility] 01/14/2023 18:44:59 Date Recorded Respiratory rate Provider Name a nd Address Organization Details Last Updated DateTime 01/14/2023 16 /min JESSIE CLARIBEL PA - [facility] 01/14/2023 18:45:01 Date Recorded Body temperature Provider Name a nd Address Organization Details Last Updated DateTime 01/14/2023 98.4 [degF] JESSIE CLARIBEL PA - [facility] 01/14/2023 18:45:09 Date Recorded Systolic blood pressure Diastolic blood pressure Provider Name and Address Organization Details Last Updated DateTime 01/14/2023 102 mm[Hg] 65 mm[Hg] JESSIE CLARIBEL PA - [facility] 01/14/2023 18:44:21 Social History Question Answer Notes LastModified by Organizat ion Details LastModified Time Tobacco Smoking Status Never Smoker NAVYA Headley - [facility] 01/14/2023 18:41:46 What Is Your Level Of Alcohol Consumption? Occasional Information not available 01/14/2023 Are You Currently Employed? Yes Information not available 01/14/2023 Do You Use Any Illicit Or Recreational Drugs? No Information not available 01/14/2023 Have You Recently Traveled Abroad? No Information not available 01/14/2023 Do You Or Have You Ever Used Any Other Forms Of Tobacco Or Nicotine? No Information not available 01/14/2023 Sex: Unknown Functional Status None recorded. Mental Status None recorded. Family History Relationship Description Onset Age of this Age Resolved Age Notes LastModified by Organization Details LastModified Time Father No current problems or disability Not available 01/14 18:41:35 Mother No current problems or disability Not available 01/14 18:41:35 Medical History No medical history recorded. Gynecological History Statement/Question Response Date of LMP 12/18/2022 Obstetrics History GPAL:G 0 P 0 0 0 0 Past Encounters Encounter ID Performer Location Encounter Start Date Encounter Closed Date Diagnosis/Indication Diagnosis SNOMED-CT Code Diagnosis ICD10 Code Diagnosis Note [id number] [address] [place] [address] 07/30/2016 08:33:43 07/30/2016 08:59:05 [id number] [address] [place] [address] 04/25/2020 15:23:32 04/25/2020 15:54:14 [id number] [address] [place] [address] 01/09/2022 16:29:37 01/09/2022 17:20:48 [id number] [address] [place] [address] 05/24/2019 09:04:25 05/24/2019 09:18:33 [id number] [address] [facility] [place] [address] 07/19/2020 15:19:27 07/19/2020 16:26:20 [id number] [address] [facility] [place] [address] 11/05/2021 08:04:11 11/05/2021 08:39:13 [id number] [address] [facility] [place] [address] 11/23/2020 17:03:44 11/23/2020 20:35:06 [id number] [address] [facility] [place] [address] 08/14/2021 15:00:34 08/14/2021 17:55:17 [id number] Bhargav Wooten NP [address] [facility] [place] [address] 01/14/2023 17:29:59 01/14/2023 19:39:53 Acute left otitis media 498455779 H66.92 Acute vaginitis 12247109 N76.0 Health Concerns Section Related Observation LastModified by Organization Detai ls LastModified Time None Recorded Concern Status LastModified by Organization Details LastModified Time None Recorded Advance Directives Directive None Recorded Payers Encounter Date Sequence Insurance Name Policy Number Policy Espinal Covered Member ID Espinal Member ID Guarantor Name 08/14/2021 1 [employer] [id number] Annita L Dahiana [id number] Rosario Dahiana 11/05/2021 1 [employer] [id number] Annita L Dahiana [id number] Rosario Dahiana 01/09/2022 1 [employer] [id number] Annita L Dahiana [id number] Rosario Dahiana 01/14/2023 1 [employer] [id number] Annita L Dahiana [id number] Rosario Dahiana Notes Date Note Type Note Provider Name and Address Organization Details Recorded Time 01/14/2023 text/html CongestionReport ed bypatient.Notes:nasal congestion with post nasal drip x 3 days. denies any fever or fever with chills. no SOB or respiratory distress.Ear Pain Brief HPIReported bypatient.Location:pain radiates to neck; left Onset/Timing:intermitte nt pain; gradual onset Duration:occurs daily; sensation/episode variable length Quality:aching pain;sharp pain Severity:getting worse; current pain 5/10 Context:recent ear infection Alleviating factors:ototopical antibiotics: ; nasal steroid spray Aggravating factors:sinus infections; allergies; irrigation of ear Associated Symptoms:Cough;nasal congestion;nasal discharge Bhargav Wooten NP [address] [place], [address], PA - [facility] 01/14/2023 19:39:17 OBGyn Episode No OBEpisode recorded.
--- OUTSIDE RECORDS SUMMARY | 2024-12-19 12:27 | XMS_ITS | Referral Summary ---
Author Organization [facility] Address [address] [place] [address] Care Team Providers Care Wage And Hour Investigator Name Role Phone Nick Johnson Primary Care Provider [phone] Allergies No known active allergies Medications dapsone 5 % topical gel 07/05/2024 Active escitalopram (LEXAPRO) 10 mg tablet 08/08/2024 Active Xiidra 5 % dropperette 01/24/2024 Active traZODone (DESYREL) 100 mg tablet 07/01/2024 Active valACYclovir (VALTREX) 500 mg tablet 01/22/2024 Active erythromycin (ILOTYCIN) 0.5% ophthalmic ointment Apply 0.5 inches to right eye 4 times a day. 3.5 g 08/20/2024 Active Social History Tobacco Use Types Packs/Day Years [...] Mass Index - - Plan of Treatment Not on file Insurance [employer] Care Teams Wage And Hour Investigator Relationship Specialty Start Date End Date Nick Johnson [address] [place] [address] [place] [address] PCP - General Internal Medicine 08/20/24
[2024-12-20 07:37] LABS: Follicle Stimulating Hormone 5.2 mIU/mL; Lutenizing Hormone 6.8 mIU/mL
[2024-12-20 10:13] LABS: Triiodothyronine T3 Free 3.4 pg/mL (2.3-4.2)
[2024-12-20 11:19] LABS: CRP High Sensitivity <0.2 mg/L
[2024-12-26 00:20] LABS: Dihydrotestosterone 9 ng/dL (< OR = 20)
[2024-12-26 23:13] LABS: Estradiol Ultra Sensitive 163 pg/mL; Progesterone 19.1 ng/mL
[2024-12-30 13:23] LABS: Testosterone, Total 27 ng/dL (2-45)
== END 2024-12-19 09:16 | disposition home or self-care (01) ==
LOC: HO.LAB 09:15
PROVIDERS: PCP Internal Medicine; Visit Provider Internal Medicine
DX: E03.9 Hypothyroidism, unspecified (principal); F31.81 Bipolar II disorder; D64.9 Anemia, unspecified; E78.5 Hyperlipidemia, unspecified; K76.0 Fatty (change of) liver, not elsewhere classified; R53.83 Other fatigue; E28.2 Polycystic ovarian syndrome
CPT/HCPCS: 36415; 80053; 80061; 82642; 82670; 82947; 83001; 83002; 84144; 84402; 84403; 84439; 84443; 84481; 85027; 86141